=== PATIENT | female | born 1980 | race Caucasian/White ===

== ENCOUNTER 2019-06-29 17:42 | Emergency (ER) | payer OTHER, SELFPAY ==
--- NOTE | ~2019-06-29 | XR_ITS ---
EXAMINATION: XR ankle LT min 3V DATE: 06/29/2019 18:09 INDICATION: Left ankle pain TECHNIQUE: Anteroposterior, lateral, mortise, and additional oblique view of the ankle were obtained. COMPARISON: None. FINDINGS: Bone alignment is normal. There is no fracture. The soft tissues are unremarkable. A planta r calcaneal enthesophyte is noted. IMPRESSION: 1. No acute osseous abnormality. Reviewed, dictated and finalized at location A.
[2019-06-29 17:58] VITALS: BP 146/88; PULSE 80; RESP 16; TEMP 36.8; O2SAT 98
--- NOTE | 2019-06-29 18:22 | ED.LOWEXIN ---
HPI - Extremity Injury (Lower) General Chief Complaint: Extremity Injury, Lower Stated Complaint: LEFT FOOT INJURY Time Seen by Provider: 06/29/19 18:08 Source: RN notes reviewed History of Present Illness HPI Narrative: Patient presents emergency department from home for left ankle pain. Patient states that just prior to arrival she was walking on the stairs when at the last stair she rolled her left ankle and felt a pop. She states she is had pain over the left lateral and anterior ankle since that time with mild swelling she denies any other trauma or injury denies any numbness or tingling or any other symptoms at this time Related Data Home Medications Medication Instructions Recorded Confirmed ergocalciferol (vitamin D2) 50,000 unit PO WEEKLY 01/11/19 01/11/19 tramadol 50 mg PO Q12H 01/11/19 01/11/19 duloxetine mg PO 06/29/19 06/29/19 Allergies Allergy/AdvReac Type Severity Reaction Status Date / Time No Known Allergies Allergy Verified 06/29/19 17:58 Review of Systems Review of Systems: Narrative: Gen.: Denies fevers or chills Musculoskeletal: See HPI Neuro: Denies numbness, tingling, weakness Skin: Denies rash Endo: Denies DM PMFSH Past Medical History Medical History Abnormal uterine bleeding Anemia Anxiety Asthma Bursitis of left knee Gallbladder disease Hiatal hernia History of cardiac monitoring IBS (irritable bowel syndrome) Mitral valve prolapse Sleep apnea Supraventricular tachycardia Social History Social History Smoking packs per day: 1 Smoking cigarettes per day: 20.0 Years smoked: 20 Smoking pack-years: 20.00 Smoking status: Former smoker Tobacco type: cigarettes Second hand tobacco smoke exposure: No Alcohol intake: current Gender identity (if verbalized by the patient): Female Exam Narrative: Exam Narrative: APPEARANCE: No acute distress, nontoxic, resting in bed Eyes: EOMI HEENT: Normocephalic, atraumatic, RESPIRATORY: No respiratory distress MUSCULOSKELETAl: Tender to palpation over the left anterior and lateral ankle with mild swelling present no ecchymosis, no pain wound over medial malleolus, no tenderness the proximal fibula or the base of the fifth metatarsal, dorsalis pedis pulse 2+, neurovascular intact NEURO: Awake and alert. Following commands, speech normal, no focal deficits SKIN:: Warm, dry. Normal Color no rash or lesions Course Vital Signs Vital signs: Vital Signs Temperature 98.2 F 06/29/19 17:58 Pulse Rate 80 06/29/19 17:58 Respiratory Rate 16 06/29/19 17:58 Blood Pressure 146/88 H 06/29/19 17:58 Pulse Oximetry 98 06/29/19 17:58 Temperature 98.2 F 06/29/19 17:58 Pulse Rate 80 06/29/19 17:58 Respiratory Rate 16 06/29/19 17:58 Blood Pressure 146/88 H 06/29/19 17:58 Pulse Oximetry 98 06/29/19 17:58 MDM - Extremity Injury (Lower) Imaging Data Radiologist's impression: ITS Impressions Ankle X-Ray 06/29/19 18:19 IMPRESSION: 1. No acute osseous abnormality. Discharge Plan Discharge Clinical Impression: Left ankle sprain Patient Disposition: Home, Self-Care Condition: Stable Instructions: Antibiotic Form, Ankle Sprain (ED) Additional Instructions: Return for increasing pain numbness or tingling in the extremities or any other symptoms of concern Prescriptions: New ibuprofen [IBU] 600 mg tablet 600 mg PO Q6H PRN (Reason: pain) Qty: 20 RF: 0 No Action tramadol 50 mg tablet 50 mg PO Q12H RF: 0 ergocalciferol (vitamin D2) 50,000 unit capsule 50,000 unit PO WEEKLY RF: 0 duloxetine 30 mg capsule,delayed release(DR/EC) PO RF: 0 Follow-up/Referrals: José,MD Phil [Primary Care Provider] - 2 Days Time of Disposition: 18:25
== END 2019-06-29 19:12 | disposition home or self-care (01) ==
PROVIDERS: Emergency Provider Emergency Medicine; PCP Internal Medicine
DX: S93.402A Sprain of unspecified ligament of left ankle, initial encounter (principal); X50.9XXA Other and unspecified overexertion or strenuous movements or postures, initial encounter; Z87.891 Personal history of nicotine dependence; J45.909 Unspecified asthma, uncomplicated; K58.9 Irritable bowel syndrome, unspecified; I34.1 Nonrheumatic mitral (valve) prolapse; G47.30 Sleep apnea, unspecified
CPT/HCPCS: 73610; 99283

== ENCOUNTER 2019-09-21 18:41 | Emergency (ER) | payer OTHER, SELFPAY ==
--- NOTE | ~2019-09-21 | CT_ITS ---
EXAMINATION: CT abdomen pelvis wo con EXAM DATE: 09/21/2019 21:04 INDICATION: Left flank pain and hematuria. Symptoms one month. TECHNIQUE: Spiral CT of the abdomen and pelvis was performed without contrast. Axial, coronal and sag ittal images were reviewed. The dose-length product (DLP) for this examination was 1234.08 mGy-cm. The exposure was tailored according to patient size (auto mA exposure control), and iterative reconst ruction (ASIR) was used as additional dose reduction technique. Comparison is made to prior examinati on from 01/01/2018. FINDINGS: There is no nephrolithiasis. Again there is mild dilation of the left renal inferior miliar y disease without suspicion of obstruction, no ureteral stones. The uterus is not identified and has likely been surgically resected. The bladder is unremarkable. The liver, spleen, adrenal glands an d pancreas are unremarkable. There are cholecystectomy clips. There is no retroperitoneal or pelvic lymphadenopathy. The appendix is normal. The stomach and small bowel are unremarkable. There is mild to moderate scat tered colonic diverticulosis. There is no adjacent inflammatory change to suggest diverticulitis. N o free intraperitoneal gas. The heart is normal in size. There are no pericardial or pleural effus ions. The lung bases are unremarkable. There is grade 2 anterolisthesis L5 on S1 without spondyloly sis. IMPRESSION: 1. Mild to moderate scattered colonic diverticulosis. 2. Mildly chronically dilated left kidney inferior moiety. 3. No acute intra-abdominal findings. Reviewed, dictated and finalized at location A.
[2019-09-21 19:03] VITALS: BP 120/74; PULSE 67; RESP 16; TEMP 36.8; O2SAT 99
[2019-09-21 19:18] LABS: Basophils Percent Auto 0.2 % (0.2-1.2); Eosinophils Absolute Auto 0.1 K/mm3 (0-0.3); Eosinophils Percent Auto 0.8 % (0-4.4); Hematocrit 38.7 % (37.0-47.0); Hemoglobin 13.2 g/dL (12.0-15.0); Immature Granulocyte Absolute 0.03 K/mm3 (0.00-0.031); Immature Granulocyte Percent A 0.3 % (0-0.5); Lymphocytes Absolute Auto 3.23 K/mm3 (0.9-3.2); Lymphocytes Percent Auto 35.6 % (18.3-44.2); Mean Corpuscular HGB Conc 34.1 g/dl (32-36); Mean Corpuscular Hemoglobin 30.1 pg (26-34); Mean Corpuscular Volume 88.4 fl (80-100); Mean Platelet Volume 9.2 fl (7.4-10.4); Monocytes Absolute Auto 0.5 K/mm3 (0.1-0.6); Monocytes Percent Auto 5.8 % (2.6-8.5); Neutrophils Absolute Auto 5.2 K/mm3 (1.3-6.7); Neutrophils Percent Auto 57.3 % (45.5-73.1); Platelet Count Result 273 k/mm3 (150-375); Red Blood Count 4.38 M/mm3 (4.2-5.4); Red Cell Distribution Width 12.6 % (11.5-14.5); White Blood Count 9.1 K/mm3 (4.5-10.0)
[2019-09-21 19:31] LABS: Anion Gap 8 mmol/L (8-16); Blood Urea Nitrogen 12 mg/dL (7-17); Calcium 8.8 mg/dL (8.4-10.2); Carbon Dioxide 25 mmol/L (22-30); Chloride 103 mmol/L (98-107); Estimated CRCL calculation 114 ml/min; Estimated Glomerular Filt Rate > 60; Glucose 101 mg/dL (65-105); Potassium 3.8 mmol/L (3.4-5.0); Sodium 136 mmol/L (137-145)
[2019-09-21 19:38] LABS: Add Urine Microscopic? YES; Appearance Urine Clear (Clear); Bacteria Urine Trace /hpf; Bilirubin Urine Negative (Negative); Blood Urine Negative (Negative); Color Urine Yellow (Yellow); Glucose Urine UA Negative (Negative); Ketones Urine Trace mg/dL (Negative); Leukocyte Esterase Ur Trace LEU/UL (Negative); Mucus Urine Few /lpf; Nitrate Urine Negative (Negative); Protein Urine Negative (Negative); RBC Urine 0-2 /hpf (0-2); Squamous Epithelial Cell Urine Few /hpf (Few); WBC Urine 0-3 /hpf
[2019-09-21 19:43] LABS: Specific Grav Ur 1.033 (1.001-1.035)
--- NOTE | 2019-09-21 20:40 | ED.BACK ---
HPI - Back Pain/Injury General Chief Complaint: Back Pain/Injury Stated Complaint: left kidney pain Time Seen by Provider: 09/21/19 20:40 Source: patient Mode of arrival: ambulatory Limitations: no limitations History of Present Illness HPI Narrative: Patient is a 39-year-old female who presents for evaluation of left-sided back pain. Pain is been intermittent over the past 4 weeks, at times it is severe, aching in nature. Patient does associate some point tenderness that can be reproducible, other times the pain is not reproducible. Patient has reported some intermittent hematuria as well. No dysuria. Patient has been taking ibuprofen with good improvement in her symptoms. Patient has no known history of nephrolithiasis. No fever or chills. Patient reports nausea and vomiting today. Related Data Home Medications Medication Instructions Recorded Confirmed ergocalciferol (vitamin D2) 50,000 unit PO WEEKLY 01/11/19 01/11/19 tramadol 50 mg PO Q12H 01/11/19 01/11/19 duloxetine mg PO 06/29/19 06/29/19 Allergies Allergy/AdvReac Type Severity Reaction Status Date / Time No Known Allergies Allergy Verified 06/29/19 17:58 Review of Systems Review of Systems: Narrative: CONSTITUTIONAL: Denies fever, chills, or sweats. EYES: Denies visual changes, redness, or discharge. ENT: Denies rhinorrhea, congestion, sore throat, or otalgia. CARDIOVASCULAR: Denies chest pain, palpitations, or edema. RESPIRATORY: Denies cough or dyspnea. GASTROINTESTINAL: Denies abdominal pain, reports nausea and vomiting today GENITOURINARY: Denies dysuria, denies frequency or urgency, reports intermittent hematuria SKIN: Denies rash or itching. MUSCULOSKELETAL: Reports left flank pain, denies other joint pain or myalgias NEUROLOGIC: Denies headache, numbness, or weakness. [facility] Past Medical History Medical History Abnormal uterine bleeding Anemia Anxiety Asthma Bursitis of left knee Gallbladder disease Hiatal hernia History of cardiac monitoring IBS (irritable bowel syndrome) Mitral valve prolapse Sleep apnea Supraventricular tachycardia Surgical History Surgical History H/O cardiac radiofrequency ablation H/O section H/O tubal ligation H/O: hysterectomy History of cholecystectomy Hx of tonsillectomy Family History Family History Mother Family history of obesity Depression Family history of bipolar disorder Hypertension Family history of diabetes mellitus in first degree relative Family history of attention deficit hyperactivity disorder (ADHD) Family history of malignant neoplasm of breast in first degree relative Father Family history of liver disease Family history of kidney disease Family history of malignant neoplasm of kidney Other Diabetes mellitus Family history of Alzheimer's disease Family history of malignant neoplasm of thyroid Social History Social History Smoking packs per day: 1 Smoking cigarettes per day: 20.0 Years smoked: 20 Smoking pack-years: 20.00 Smoking status: Former smoker Tobacco type: cigarettes Second hand tobacco smoke exposure: No Alcohol intake: current Gender identity (if verbalized by the patient): Female Exam Narrative: Exam Narrative: GENERAL: Awake, alert, conversant HEAD: Normocephalic, atraumatic. EYES: PERRLA and EOMI. ENT: Nares clear, no rhinorrhea or epistaxis. Mucous membranes moist. NECK: Supple. CHEST: No respiratory distress, breathing even and non labored HEART: Regular rate, sinus rhythm ABDOMEN:Non distended, non tender, mild reproducible left flank tenderness EXTREMITIES: Normal range of motion. No edema. SKIN: Warm, dry, no rash. No overlying rash over the flank or thorax. NEURO:No focal deficits. Alert and ming
[2019-09-21 22:09] VITALS: BP 134/74; PULSE 63; RESP 20; TEMP 36.6; O2SAT 100
== END 2019-09-21 22:10 | disposition home or self-care (01) ==
PROVIDERS: Emergency Medicine; Emergency Provider Emergency Medicine; PCP Internal Medicine
DX: M54.5 Low back pain (principal); Z86.2 Personal history of diseases of the blood and blood-forming organs and certain disorders involving the immune mechanism; J45.909 Unspecified asthma, uncomplicated; K58.9 Irritable bowel syndrome, unspecified; I34.1 Nonrheumatic mitral (valve) prolapse; G47.30 Sleep apnea, unspecified; K57.90 Diverticulosis of intestine, part unspecified, without perforation or abscess without bleeding; N28.89 Other specified disorders of kidney and ureter
CPT/HCPCS: 36415; 74176; 80048; 81001; 81025; 85025; 99284

== ENCOUNTER 2019-11-20 05:45 | Emergency (ER) | payer OTHER, SELFPAY ==
--- NOTE | ~2019-11-20 | XR_ITS ---
EXAMINATION: XR chest 1V portable DATE: 11/20/2019 06:35 INDICATION: Cough and fever and shortness of breath. TECHNIQUE: A single frontal view of the chest was obtained. COMPARISON: Chest 2 views 01/10/2019, CT abdomen and pelvis 09/21/2019 FINDINGS: The chest demonstrates clear lungs without pneumonia, pleural effusion, or pneumothorax. Th e heart size is normal. IMPRESSION: 1. No acute cardiopulmonary disease. Reviewed, dictated and finalized at location A.
[2019-11-20 05:56] VITALS: BP 119/72; PULSE 69; RESP 16; TEMP 36.8; O2SAT 96
--- NOTE | 2019-11-20 06:49 | ECG_ITS ---
Measurements Intervals [place] Rate: 62 P: 43 GA: 139 QRS: 15 QRSD: 101 T: 29 QT: 436 QTc: 444 Interpretive Statements SINUS RHYTHM WITH SINUS ARRHYTHMIA NORMAL ECG Electronically Signed On 11-20-2019 7:23:08 CDT by Kev Altman D.O.
--- NOTE | 2019-11-20 06:52 | ED.FEVER ---
HPI - Fever General Chief Complaint: Fever Stated Complaint: fever, sob, chest is on fire, bodyaches Time Seen by Provider: 11/20/19 06:49 Source: patient Mode of arrival: ambulatory Limitations: no limitations History of Present Illness HPI Narrative: This patient is a 39 year old female with history of asthma and anxiety who presents for evaluation of fever. She states she has had runny nose and cough since Tuesday. Today she states she had a fever around 5 am. She took ibuprofen for her fever. She reports chest has midsternal burning pain only when she coughs. She reports she felt sob when she got to work but she denies sob now. 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 She denies any other symptoms that could account for a fever. MD elicited complaint: fever Related Data Home Medications Medication Instructions Recorded Confirmed ergocalciferol (vitamin D2) 50,000 unit PO WEEKLY 01/11/19 01/11/19 tramadol 50 mg PO Q12H 01/11/19 01/11/19 duloxetine mg PO 06/29/19 06/29/19 Allergies Allergy/AdvReac Type Severity Reaction Status Date / Time No Known Allergies Allergy Verified 06/29/19 17:58 Review of Systems Review of Systems: All systems reviewed & are unremarkable except as noted in HPI and below Constitutional: Constitutional: Denies fever(s) ENT: Denies sore throat Comments: runny nosed Cardiovascular: Cardiovascular: Reports chest pain (only with cough) Gastrointestinal: Gastrointestinal: Denies abdominal pain, Denies diarrhea, Denies nausea and Denies vomiting [facility] Past Medical History Medical History (Updated 11/20/19 @ 07:13 by Naya Nicole MD) Abnormal uterine bleeding Anemia Anxiety Asthma Bursitis of left knee Gallbladder disease Hiatal hernia History of cardiac monitoring IBS (irritable bowel syndrome) Mitral valve prolapse Sleep apnea Supraventricular tachycardia Surgical History Surgical History H/O cardiac radiofrequency ablation H/O section H/O tubal ligation H/O: hysterectomy History of cholecystectomy Hx of tonsillectomy Family History Family History Mother Family history of obesity Depression Family history of bipolar disorder Hypertension Family history of diabetes mellitus in first degree relative Family history of attention deficit hyperactivity disorder (ADHD) Family history of malignant neoplasm of breast in first degree relative Father Family history of liver disease Family history of kidney disease Family history of malignant neoplasm of kidney Other Diabetes mellitus Family history of Alzheimer's disease Family history of malignant neoplasm of thyroid Social History Social History Smoking packs per day: 1 Smoking cigarettes per day: 20.0 Years smoked: 20 Smoking pack-years: 20.00 Smoking status: Former smoker Tobacco type: cigarettes Second hand tobacco smoke exposure: No Alcohol intake: current Gender identity (if verbalized by the patient): Female Exam Const: General: no acute distress and alert Orientation/consciousness: patient oriented x3 HENMT: Head: normocephalic and atraumatic Ears: TM's normal bilaterally General nose exam: Normal nasal mucous membranes and turbinates present Mouth: Yes lip normal, Yes oropharynx normal and Yes moist mucous membranes Throat: posterior oropharynx normal, tonsils normal and uvula midline Eyes: Pupils: Equal, round and reactive pupils present EOM: EOMs intact bilaterally Neck: Neck: normal visual inspection Chest: Chest palpation & inspection: normal inspection of the chest Resp: Effort & Inspection: normal respiratory effort and no retractions Auscultation: clear to auscultation bilaterally Cardio: Rate: regular rate Rhythm: regular rhythm Heart sounds:
[2019-11-20 07:44] VITALS: BP 129/78; PULSE 82; RESP 18; O2SAT 100
[2019-11-20 19:01] LABS: SARS-CoV-2 RNA PCR Negative
== END 2019-11-20 07:44 | disposition home or self-care (01) ==
PROVIDERS: Emergency Provider General Practice; PCP Internal Medicine
DX: R50.9 Fever, unspecified (principal); Z20.828 Contact with and (suspected) exposure to other viral communicable diseases
CPT/HCPCS: 71045; 87635; 93005; 99283; C9803; U0003

== ENCOUNTER 2020-05-07 05:47 | Emergency (ER) | payer OTHER, SELFPAY ==
[2020-05-07] VITALS (8 sets, daily range): BP systolic 102–129; BP diastolic 62–104; PULSE 78–85; RESP 13–20; TEMP 36.9; O2SAT 97–100
--- NOTE | ~2020-05-07 | XR_ITS ---
EXAMINATION: XR chest 1V portable DATE: 05/07/2020 06:48 INDICATION: Cough, shortness of breath and fever. COVID positive. TECHNIQUE: frontal view of the chest was obtained. COMPARISON: Chest radiograph dated 11/20/2019 FINDINGS: Linear discoid atelectasis at the left costophrenic angle. Remainder of the lungs are clear with no o ther airspace opacities, pulmonary edema, pleural effusion or pneumothorax. The cardiomediastinal nathen houette is normal. Visualized bones and soft tissues are unremarkable. IMPRESSION: 1. Minimal left basilar discoid atelectasis. Reviewed, dictated and finalized at location A.
--- NOTE | 2020-05-07 06:19 | ECG_ITS ---
Measurements Intervals [place] Rate: 80 P: 44 [place]: 130 QRS: 26 QRSD: 104 T: 54 QT: 371 QTc: 428 Interpretive Statements SINUS RHYTHM INCOMPLETE RIGHT BUNDLE BRANCH BLOCK NONSPECIFIC T-WAVE ABNORMALITY- LATERAL LEADS BASELINE ARTIFACT- I, III, AVL BORDERLINE ECG Electronically Signed On 05-07-2020 7:04:18 CDT by Kev Altman D.O.
--- NOTE | 2020-05-07 06:20 | ED.FEVER ---
HPI - Fever General Chief Complaint: Fever <Naya Nicole MD - Last Filed: 05/07/20 07:02> Stated Complaint: Fever-Covid pos 04/30/20 <Naya Nicole MD - Last Filed: 05/07/20 07:02> Time Seen by Provider: 05/07/20 05:52 <Naya Nicole MD - Last Filed: 05/07/20 07:02> Source: patient <Naya Nicole MD - Last Filed: 05/07/20 07:02> Mode of arrival: ambulatory <Naya Nicole MD - Last Filed: 05/07/20 07:02> Limitations: no limitations <Naya Nicole MD - Last Filed: 05/07/20 07:02> History of Present Illness HPI Narrative: This is a 39 year old female that was diagnosed with COVID 19 on 04/30/20 who presents for evaluation of fever. She states that she was tested for COVID 04/30/20 because her was positive. She developed symptoms on 05/01/20. She reports cough, palpitations, poor appetite and intermittent fever initially. She developed nausea and vomiting 2 days ago, so her primary care physician prescribed azithromycin, zofran and prednisone. She states she was orthostatic yesterday so she was able to drink a lot of gatorade and she states she was no longer orthostatic. This morning she woke up with with chills, shakes and a fever or 102F. She took ibuprofen prior to arrival. She came to the ER because he primary care physician recommended that she get evaluated if she developed a fever. She reports intermittent nonradiating left chest pressure but she denies having pain currently. She has shortness of breath with activity. She also has palpitation <Naya Nicole MD - Last Filed: 05/07/20 07:02> Related Data Home Medications: Home Medications Medication Instructions Recorded Confirmed ergocalciferol (vitamin D2) 50,000 unit PO WEEKLY 01/11/19 01/11/19 tramadol 50 mg PO Q12H 01/11/19 01/11/19 duloxetine mg PO 06/29/19 06/29/19 <Naya Nicole MD - Last Filed: 05/07/20 07:02> Allergies/Adverse Reactions: Allergies Allergy/AdvReac Type Severity Reaction Status Date / Time No Known Allergies Allergy Verified 05/07/20 06:05 <Naya Nicole MD - Last Filed: 05/07/20 07:02> Review of Systems Review of Systems: All systems reviewed & are unremarkable except as noted in HPI and below <Naya Nicole MD - Last Filed: 05/07/20 07:02> Constitutional: Constitutional: Reports chills, Reports fatigue and Reports fever(s) <Naya Nicole MD - Last Filed: 05/07/20 07:02> ENT: Denies sore throat <Naya Nicole MD - Last Filed: 05/07/20 07:02> Cardiovascular: Cardiovascular: Reports chest pain, Denies rapid heart rate and Denies radiating jaw, neck or arm pain <Naya Nicole MD - Last Filed: 05/07/20 07:02> Respiratory: Respiratory: Reports cough and Reports dyspnea <Naya Nicole MD - Last Filed: 05/07/20 07:02> Gastrointestinal: Gastrointestinal: Denies abdominal pain, Denies diarrhea, Reports nausea and Reports vomiting <Nyaa Nicole MD - Last Filed: 05/07/20 07:02> Genitourinary: Genitourinary: Denies hematuria and Denies dysuria <Naya Nicole MD - Last Filed: 05/07/20 07:02> Musculoskeletal: Musculoskeletal: Denies back pain <Naya Nicole MD - Last Filed: 05/07/20 07:02> [facility] Past Medical History Medical History: Medical History (Updated 05/07/20 @ 07:26 by Elva Ramirez MD) Abnormal uterine bleeding Anemia Anxiety Asthma Bursitis of left knee Gallbladder disease Hiatal hernia History of cardiac monitoring IBS (irritable bowel syndrome) Mitral valve prolapse Sleep apnea Supraventricular tachycardia <Naya Nicole MD - Last Filed: 05/07/20 07:02> Surgical History Surgical History: Surgical History H/O cardiac radiofrequency ablation H/O section H/O tubal ligation H/O: hysterectomy History of cholecystectomy Hx of tonsillectomy <Naya Nicole MD - Last Filed: 05/07/20 07:02>
[2020-05-07] MEDS: ONDANSETRON INJ 4 MG/2 ML VIAL IV PUSH (06:36)
[2020-05-07] MEDS: SODIUM CHLORIDE 0.9% IV 1,000 ML 999 ML IV CONT (06:36)
[2020-05-07 06:37] LABS: Basophils Percent Auto 0.3 % (0.2-1.2); Hematocrit 40.9 % (37.0-47.0); Hemoglobin 13.9 g/dL (12.0-15.0); Immature Granulocyte Absolute 0.01 K/mm3 (0.00-0.031); Immature Granulocyte Percent A 0.3 % (0-0.5); Lymphocytes Percent Auto 29.3 % (18.3-44.2); Mean Corpuscular Hemoglobin 29.7 pg (26-34); Mean Corpuscular Volume 87.4 fl (80-100); Mean Platelet Volume 9.4 fl (7.4-10.4); Monocytes Absolute Auto 0.2 K/mm3 (0.1-0.6); Monocytes Percent Auto 6.1 % (2.6-8.5); Neutrophils Absolute Auto 2.4 K/mm3 (1.3-6.7); Platelet Count Result 141 k/mm3 (150-375); Red Blood Count 4.68 M/mm3 (4.2-5.4); Red Cell Distribution Width 12.5 % (11.5-14.5); White Blood Count 3.8 K/mm3 (4.5-10.0)
[2020-05-07 06:48] LABS: INR 0.8; Prothrombin Time 12.1 Seconds (11.1-14.7)
[2020-05-07 06:50] LABS: D Dimer 0.76 ug/mL (<0.48)
[2020-05-07 06:54] LABS: Alanine Aminotransferase 128 U/L (4-35); Alkaline Phosphatase 112 U/L (38-126); Anion Gap 5 mmol/L (8-16); Aspartate Amino Transferase 119 U/L (14-36); Bilirubin,Total 0.5 mg/dL (0.2-1.3); Blood Urea Nitrogen 9 mg/dL (7-17); CRP < 0.5 mg/dL (<1.0); Calcium 8.3 mg/dL (8.4-10.2); Carbon Dioxide 28 mmol/L (22-30); Chloride 105 mmol/L (98-107); Estimated CRCL calculation 107 ml/min; Estimated Glomerular Filt Rate > 60; Glucose 100 mg/dL (65-105); Magnesium 1.5 mg/dL (1.6-2.3); Potassium 4.1 mmol/L (3.4-5.0); Sodium 138 mmol/L (137-145)
[2020-05-07 07:01] LABS: Troponin I < 0.012 ng/mL (0.000-0.034)
[2020-05-07 07:40] LABS: Partial Thromboplastin Time 24.7 SECONDS (22.3-36.8)
== END 2020-05-07 07:43 | disposition home or self-care (01) ==
PROVIDERS: General Practice; Emergency Provider Emergency Medicine; PCP Internal Medicine
DX: U07.1 COVID-19 (principal); D64.9 Anemia, unspecified; J45.909 Unspecified asthma, uncomplicated; G47.30 Sleep apnea, unspecified
CPT/HCPCS: 36415; 71045; 80053; 81025; 83735; 84484; 85025; 85380; 85610; 85730; 86140; 93005; 96361; 96374; 99284; J2405; J7030

== ENCOUNTER → 2020-08-08 08:18 | Outpatient (CLI) | payer OTHER, SELFPAY ==
--- NOTE | ~2020-08-08 | CT_ITS ---
EXAMINATION: CT abdomen pelvis wo con DATE: 08/08/2020 08:38 INDICATION: Incisional hernia without obstruction or gangrene TECHNIQUE: Computed tomography (CT) of the abdomen and pelvis was performed without intravenous contr ast. The dose-length product (DLP) was 1023.97 mGy-cm. Automated exposure control and iterative recon struction technique were employed. COMPARISON: 09/21/2019 FINDINGS: The lung bases are clear. The heart size is normal. The gallbladder is surgically absent. T here is mild enlargement of the common bile duct and central intrahepatic ducts which is likely due t o post cholecystectomy state. The liver, spleen, pancreas, and adrenal glands are normal. The right k idney is unremarkable. There is unchanged chronic dilatation of a lower pole calyx of the left kidney . No pathologically enlarged abdominal or pelvic lymph nodes are identified. There is no free intrape ritoneal gas or evidence of bowel obstruction. Colonic diverticulosis is present without evidence of diverticulitis. There are bilateral L5 pars defects with grade 1 anterolisthesis of L5 on S1 there is a fat-containing midline epigastric hernia with a 2.1 cm neck. A small fat-containing midline ventra l hernia was present for centimeters above the umbilicus and has a 1 cm neck there is a fat-containin g umbilical hernia. IMPRESSION: 1. Multiple fat-containing midline ventral hernias, the largest of which is in the epigastric hernia. Reviewed, dictated and finalized at location D.
== END ==
PROVIDERS: Visit Provider Surgery
DX: K43.2 Incisional hernia without obstruction or gangrene (principal)
CPT/HCPCS: 74176

== ENCOUNTER 2020-08-15 07:33 | Emergency (ER) | payer OTHER, SELFPAY ==
--- NOTE | ~2020-08-15 | XR_ITS ---
EXAMINATION: XR shoulder RT min 2V EXAM DATE: 08/15/2020 08:09 INDICATION: Anterior joint line pain, pushing injury from work . Initial encounter. TECHNIQUE: The following right shoulder projections obtained: frontal projection with internal rotati on, frontal projection with external rotation, Grashey, and scapular Y view (4+ views). There is no prior study for comparison. FINDINGS: No evidence of right shoulder rotator cuff calcific tendinosis. There is no glenohumeral joint, mild acromioclavicular joint primary osteoarthritis. There are no acute fractures or dislocati ons identified. There is no subcutaneous gas. The soft tissue is unremarkable. There are no radio paque foreign bodies. IMPRESSION: 1. XR shoulder RT min 2V exam without acute osseous findings. Reviewed, dictated and finalized at location D.
[2020-08-15 07:48] VITALS: BP 121/93; PULSE 91; RESP 16; TEMP 36.8; O2SAT 98
--- NOTE | 2020-08-15 10:22 | ED.UPPEXIN ---
HPI - Extremity Injury (Upper) General Chief Complaint: Extremity Injury, Upper Stated Complaint: R shoulder injury Time Seen by Provider: 08/15/20 07:51 History of Present Illness HPI narrative: Patient is a 40-year-old female who presents ER with right shoulder pain. She was helping move a patient last night when she felt a cracking pain in her right shoulder. She has pain with abduction. No numbness or tingling. She has not tried any pain medication. Most the pain is over the anterior aspect of her shoulder. Related Data Home Medications Medication Instructions Recorded Confirmed tramadol 50 mg PO Q12H 01/11/19 07/29/20 dextroamphetamine-amphetamine 25 mg PO DAILY 08/15/20 08/15/20 [Adderall XR] Allergies Allergy/AdvReac Type Severity Reaction Status Date / Time No Known Allergies Allergy Verified 08/15/20 07:56 Review of Systems Review of Systems: All systems reviewed & are unremarkable except as noted in HPI and below Musculoskeletal: Musculoskeletal: Denies back pain, Reports arthralgias, Denies joint swelling and Denies muscle cramps Neurologic: Denies focal weakness and Denies numbness [facility] Past Medical History Medical History (Updated 08/15/20 @ 10:26 by Grzegorz Henderson MD) Abnormal uterine bleeding Anemia Anxiety Asthma Bursitis of left knee Gallbladder disease Hiatal hernia History of blood transfusion History of cardiac monitoring IBS (irritable bowel syndrome) Mitral valve prolapse Sleep apnea Supraventricular tachycardia Surgical History Surgical History H/O cardiac radiofrequency ablation H/O section H/O tubal ligation H/O: hysterectomy History of cholecystectomy Hx of tonsillectomy Family History Family History Mother Family history of obesity Depression Family history of bipolar disorder Hypertension Family history of diabetes mellitus in first degree relative Family history of attention deficit hyperactivity disorder (ADHD) Family history of malignant neoplasm of breast in first degree relative Family history of kidney disease Father Family history of liver disease Family history of kidney disease Family history of malignant neoplasm of kidney Other Diabetes mellitus Family history of Alzheimer's disease Family history of malignant neoplasm of thyroid Social History Social History Smoking packs per day: 1 Smoking cigarettes per day: 20.0 Years smoked: 20 Smoking pack-years: 20.00 Smoking status: Current every day smoker Tobacco type: cigarettes Second hand tobacco smoke exposure: No Alcohol intake: current Substance use: unknown Additional occupation/education comments: INVENTORY AUDITOR at [employer] Gender identity (if verbalized by the patient): Female Exam Narrative: Exam Narrative: GENERAL: Well-appearing, well-nourished, and in no acute distress. HEAD: Normocephalic, atraumatic. CHEST: Clear to auscultation. No respiratory distress. HEART: Regular rate and rhythm. Normal peripheral pulses. EXTREMITIES: Focused exam of the right upper extremity reveals anterior joint line tenderness inferior to the AC process. No tenderness over the AC process. Normal internal and external rotation. Patient has increased pain and crepitance of the area with abduction of 20 degrees. Neurovascular intact distal to this. SKIN: Warm, dry, no rash. NEURO: Alert and oriented x3. PSYCH: Normal mood and affect. Course Course Emergency Course: Recommend rest and NSAIDs. Recommend follow-up with PCP and will also give Ortho referral. Shoulder impingement versus labral injury. Patient verbalized understanding. Vital Signs Vital signs: Vital Signs Temperature 98.2 F 08/15/20 07:48 Pulse Rate 91 08/15/20 07:48 Respiratory Rate 16 08/15/20 07:48 B
== END 2020-08-15 10:50 | disposition home or self-care (01) ==
PROVIDERS: Emergency Provider Emergency Medicine; PCP Internal Medicine
DX: S49.91XA Unspecified injury of right shoulder and upper arm, initial encounter (principal); Z86.2 Personal history of diseases of the blood and blood-forming organs and certain disorders involving the immune mechanism; F41.9 Anxiety disorder, unspecified; J45.909 Unspecified asthma, uncomplicated; K58.9 Irritable bowel syndrome, unspecified; I34.1 Nonrheumatic mitral (valve) prolapse; G47.30 Sleep apnea, unspecified; F17.210 Nicotine dependence, cigarettes, uncomplicated; X50.0XXA Overexertion from strenuous movement or load, initial encounter; Y93.F2 Activity, caregiving, lifting
CPT/HCPCS: 73030; 99283

== ENCOUNTER 2020-08-27 08:22 | Outpatient (CLI) | payer OTHER, SELFPAY ==
--- NOTE | ~2020-08-27 | MR_ITS ---
EXAMINATION: MR shoulder RT wo con DATE: 08/27/2020 10:07 INDICATION: Right shoulder and upper arm injury TECHNIQUE: Magnetic resonance imaging (MRI) of the right shoulder was performed without intravenous c ontrast. Sequences included axial PD-weighted FS FSE, coronal oblique PD-weighted FS FSE, coronal obl ique T2-weighted FS FSE, sagittal PD-weighted FS FSE, and sagittal T1-weighted SE. COMPARISON: None. FINDINGS: Coracoacromial arch: The acromion undersurface is curved in morphology (type II). Mild thickening of the acromial side of the coracoacromial ligament which exerts mass effect upon the underlying bursal side of the posterior supraspinatus tendon. Mild acromioclavicular osteoarthritis. Rotator cuff: Mild to moderate tendinopathy with shallow bursal sided fraying at the distal supraspinatus and infra spinatus tendons. No measurable tear defect appreciated. The subscapularis and teres minor tendons ar e normal. Normal rotator cuff muscle bulk and signal. Biceps tendon, glenoid labrum and glenohumeral cartilage: Long head of the biceps tendon is normal. Glenoid labrum is normal. Glenohumeral cartilage is normal. Fluid: Physiologic amount of fluid in the glenohumeral joint and biceps tendon sheath. No loose osteochondra l bodies. Small amount of fluid in the subacromial/subdeltoid bursa consistent with mild to moderate bursitis. Bones: Normal marrow signal with no edema, fracture or abnormal marrow replacing process. IMPRESSION: 1. Mild to moderate supraspinatus and infraspinatus tendinopathy with shallow bursal sided fraying bu t no measurable tear defect. 2. Mild to moderate subacromial/subdeltoid bursitis. 3. Mild acromioclavicular osteoarthritis. Reviewed, dictated and finalized at location A. IMPRESSION: 1. Mild to moderate supraspinatus and infraspinatus tendinopathy with shallow b ursal sided fraying but no measurable tear defect. 2. Mild to moderate subacromial/subdeltoid bursitis. 3. Mild acromioclavicular osteoarthritis.
== END 2020-08-27 08:23 | disposition home or self-care (01) ==
PROVIDERS: PCP Internal Medicine; Visit Provider Orthopaedic Surgery
DX: S49.91XA Unspecified injury of right shoulder and upper arm, initial encounter (principal); X58.XXXA Exposure to other specified factors, initial encounter; M19.011 Primary osteoarthritis, right shoulder; M75.51 Bursitis of right shoulder
CPT/HCPCS: 73221

== ENCOUNTER 2020-10-31 11:00 | Outpatient (RCR) | payer OTHER, SELFPAY ==
--- NOTE | 2020-10-01 12:47 | PTOPEVAL ---
INITIAL PHYSICAL THERAPY EVALUATION and PLAN OF CARE Thank you for referring Renea Hanna to [facility].? Renea is scheduled to be seen for physical therapy?2-3x/week for 4-6 weeks. Please review, sign, date and return this plan of care MOISE. I agree with and certify that the following plan of care is medically necessary. Referring Physician Date Admitting Provider: Attending Provider: Cristobal Nielsen MD Referring Provider: *PT Outpatient Evaluation Start: 10/01/20 11:18 Freq: Status: Active Protocol: Document 10/01/20 11:20 VAISHALI (Rec: 10/01/20 12:46 VAISHALI [id number]) Therapy Assessment Status Assessment Status Assessment Status Evaluation Outpatient Past Medical History Past Medical History Source of Past Medical History Recalled from Previous Visit, Confirmed with Patient/Family Neurological History Hx Neurological Disorders No Significant History Cardiovascular History Hx Irregular Heartbeat Yes: tachycardia at times Hx Mitral Valve Prolapse Yes Hx Other Cardiac Disorders Yes: ablasion in 2015 Respiratory History Hx Asthma Yes Hx Sleep Apnea Yes Gastrointestinal History Hx Cholecystectomy Yes Hx Hernia Yes Hx Irritable Bowel Yes Genitourinary History Hx Genitourinary Disorders No Significant History Musculoskeletal History Hx Other Musculoskeletal Disorders Yes: R hip pain,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 Hematological History Hx Hematological Disorders No Significant History Endocrine History Hx Endocrine Disorders No Significant History HEENT History Hx HEENT Disorders No Significant History Integumentary History Hx Skin Disorders No Significant History Reproductive History Hx Hysterectomy Yes: October 2018 Psychosocial History Hx Anxiety Yes Hx Attention Deficit Hyperactivity Yes Disorder Pain History History of Any Previous or Ongoing No Significant History Instance of Pain Anesthesia History Hx Anesthesia Reactions No Significant History Evaluation Information Problem Diagnosis R shoulder tendinopathy Onset 08/14/2020 Cause moving pt onto stretching - using slides Subjective Information Paramedics needed help Query Text:As Reported By Patient/ transferring pt from bed to Family stretching - went and got the slides, she was on bed side - going to stretcher - at end of motion felt crunch sensation
--- NOTE | 2020-10-10 12:37 | PCPTNOTE ---
Patient called & cancelled scheduled appointment earlier this date due to sick child.
--- NOTE | 2020-10-24 12:17 | PCPTNOTE ---
Patient called to cancel appointment this date stating she was sick.
--- NOTE | 2020-11-26 08:49 | PCPTNOTE ---
PHYSICAL THERAPY DISCHARGE NOTE Admitting Provider: Attending Provider: Cristobal Nielsen MD Patient:Renea Hanna Date of :1980 Renea has not returned for any further treatments since 10/31/2020, therefore she will be discharged at this time. Patient?s initial visit was on 10/01/2020 11:00 and she had a total of 6 visits. The goals have been partially met. Renea's pain levels were decreasing, AROM and strength of R g-h jt were improving. Thank you for referring this Renea to [facility]. Please review, sign, date and return this discharge summary MOISE. I have been updated about Renea's current status and I agree with discharge from the above service at this time. Referring Physician Date
== END 2020-12-30 09:51 | disposition home or self-care (01) ==
LOC: ANHHIPT 11:00
PROVIDERS: PCP Internal Medicine; Visit Provider Orthopaedic Surgery
DX: M67.813 Other specified disorders of tendon, right shoulder (principal)
CPT/HCPCS: 97035; 97110; 97140; 97161

== ENCOUNTER 2021-03-08 22:05 | Emergency (ER) | payer OTHER, SELFPAY ==
--- NOTE | ~2021-03-08 | CT_ITS ---
EXAMINATION: CT abdomen pelvis w con DATE: 03/08/2021 23:45 INDICATION: Right upper quadrant and epigastric abdominal pain. TECHNIQUE: Computed tomography (CT) of the abdomen and pelvis was performed with 100 mL Omnipaque 350 intravenous contrast. Automated exposure control and iterative reconstruction technique were employe d. The dose-length product was 1227.20 mGy-cm. COMPARISON: CT abdomen and pelvis 08/08/2020 FINDINGS: The visualized portions of the lung bases demonstrate mild atelectasis. No pleural effusion . The heart size is normal. No pericardial effusion. The liver and spleen are normal. There are hebert es of cholecystectomy. The pancreas, adrenal glands, and right kidney are normal. There are peripelvi c cysts in left kidney measuring up to 18 mm. There is diverticulosis of the colon without evidence o f diverticulitis. The appendix is normal. There are three supraumbilical ventral hernias containing f at. There are no pathologically enlarged lymph nodes. There is no free intraperitoneal fluid. There i s severe lower lumbar spondylosis. IMPRESSION: 1. Three supraumbilical ventral hernias containing fat. Reviewed, dictated and finalized at location A. MOGRAPH CHIEF
[2021-03-08 22:10] VITALS: BP 140/78; PULSE 99; RESP 17; TEMP 36; O2SAT 100
--- NOTE | 2021-03-08 22:37 | ED.ABDPAIN ---
HPI - Abdominal Pain General Chief Complaint: Abdominal Pain Stated Complaint: my hernia hurts Time Seen by Provider: 03/08/21 22:19 Source: patient History of Present Illness HPI narrative: Patient presents with abdominal pain. Patient reports history of multiple hernias was scheduled for operative management however had a traumatic injury and surgical prior was delayed and she has not followed up with her surgeon. She presents in aches over the past 24 to 48 hours she has had increasing pain to her right upper quadrant and epigastric area where her hernias are present. Denies any sort of movement or pushing on area exacerbates her pain and causing nausea. Pain exacerbated by eating. Pain does not radiate. Related Data Home Medications Medication Instructions Recorded Confirmed tramadol 50 mg PO Q12H 01/11/19 12/04/20 dextroamphetamine-amphetamine 25 mg PO DAILY 08/15/20 12/04/20 [Adderall XR] cholecalciferol (vitamin D3) PO 08/20/20 12/04/20 Allergies Allergy/AdvReac Type Severity Reaction Status Date / Time No Known Allergies Allergy Verified 03/08/21 22:12 Review of Systems Review of Systems: CONSTITUTIONAL: Denies fever, chills, or sweats. EYES: Denies visual changes, redness, or discharge. ENT: Denies rhinorrhea, congestion, sore throat, or otalgia. CARDIOVASCULAR: Denies chest pain, palpitations, or edema. RESPIRATORY: Denies cough or dyspnea. GASTROINTESTINAL: Abdominal pain nausea GENITOURINARY: Denies dysuria or hematuria. SKIN: Denies rash or itching. MUSCULOSKELETAL: Denies back pain, joint pain, or myalgia. NEUROLOGIC: Denies headache, numbness, dizziness, or weakness. PSYCHIATRIC: Denies anxiety or depression. All systems reviewed & are unremarkable except as noted in HPI and below PMFSH Past Medical History Medical History Abnormal uterine bleeding Anemia Anxiety Asthma Bursitis of left knee Claustrophobia Gallbladder disease Hiatal hernia History of blood transfusion History of cardiac monitoring IBS (irritable bowel syndrome) Mitral valve prolapse Sleep apnea Supraventricular tachycardia Surgical History Surgical History H/O cardiac radiofrequency ablation H/O section H/O tubal ligation H/O: hysterectomy History of adenoidectomy History of cholecystectomy Hx of tonsillectomy Family History Family History Mother Family history of obesity Depression Family history of bipolar disorder Hypertension Family history of diabetes mellitus in first degree relative Family history of attention deficit hyperactivity disorder (ADHD) Family history of malignant neoplasm of breast in first degree relative Family history of kidney disease Father Family history of liver disease Family history of kidney disease Family history of malignant neoplasm of kidney Other Diabetes mellitus Family history of Alzheimer's disease Family history of malignant neoplasm of thyroid Social History Social History Smoking packs per day: 0.2 Smoking cigarettes per day: 4.0 Years smoked: 25 Smoking pack-years: 5.00 Tobacco type: cigarettes Second hand tobacco smoke exposure: No Alcohol intake: current Substance use: unknown 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 HEAD: Normocephalic, atraumatic. EYES: PERRLA and EOMI. ENT: Nares clear, no rhinorrhea or epistaxis. Mucous membranes moist. NECK: Supple. No masses. No JVD ABDOMEN: Moderate tenderness in the right upper quadrant and epigastric area soft, nondistended EXTREMITIES: Normal range of motion. No edema. SKIN: Warm, dry
[2021-03-08 23:08] LABS: Basophils Percent Auto 0.2 % (0.2-1.2); Eosinophils Absolute Auto 0.1 K/mm3 (0-0.3); Eosinophils Percent Auto 1.3 % (0-4.4); Hematocrit 36.7 % (37.0-47.0); Hemoglobin 12.8 g/dL (12.0-15.0); Immature Granulocyte Absolute 0.02 K/mm3 (0.00-0.031); Immature Granulocyte Percent A 0.2 % (0-0.5); Lymphocytes Absolute Auto 3.03 K/mm3 (0.9-3.2); Lymphocytes Percent Auto 34.7 % (18.3-44.2); Mean Corpuscular HGB Conc 34.9 g/dl (32-36); Mean Corpuscular Hemoglobin 31.2 pg (26-34); Mean Corpuscular Volume 89.5 fl (80-100); Mean Platelet Volume 9.5 fl (7.4-10.4); Monocytes Absolute Auto 0.5 K/mm3 (0.1-0.6); Monocytes Percent Auto 5.5 % (2.6-8.5); Neutrophils Absolute Auto 5.1 K/mm3 (1.3-6.7); Neutrophils Percent Auto 58.1 % (45.5-73.1); Platelet Count Result 273 k/mm3 (150-375); White Blood Count 8.7 K/mm3 (4.5-10.0)
[2021-03-08 23:11] LABS: Add Urine Microscopic? YES; Appearance Urine Clear (Clear); Bilirubin Urine Negative (Negative); Blood Urine Negative (Negative); Color Urine Yellow (Yellow); Glucose Urine UA Negative (Negative); Ketones Urine Negative (Negative); Leukocyte Esterase Ur Negative LEU/UL (Negative); Mucus Urine Rare /lpf; Nitrate Urine Negative (Negative); Protein Urine Negative (Negative); Squamous Epithelial Cell Urine Rare /hpf (Few); WBC Urine 0-3 /hpf
[2021-03-08 23:19] LABS: Alanine Aminotransferase 15 U/L (4-35); Albumin Level 4.2 g/dL (3.5-5.1); Alkaline Phosphatase 69 U/L (38-126); Anion Gap 5 mmol/L (8-16); Aspartate Amino Transferase 18 U/L (14-36); Bilirubin,Total 0.3 mg/dL (0.2-1.3); Blood Urea Nitrogen 15 mg/dL (7-17); Calcium 8.5 mg/dL (8.4-10.2); Carbon Dioxide 25 mmol/L (22-30); Chloride 107 mmol/L (98-107); Estimated Glomerular Filt Rate > 60; Glucose 107 mg/dL (65-110); Lactic Acid Reflex 0.7 mmol/L (0.7-2.1); Lipase 155 U/L (23-300); Potassium 4.1 mmol/L (3.4-5.0); Sodium 137 mmol/L (137-145)
[2021-03-08] MEDS: SODIUM CHLORIDE 0.9% IV 1,000 ML 999 ML IV CONT (23:19)
[2021-03-08] MEDS: ONDANSETRON INJ 4 MG/2 ML VIAL IV PUSH (23:19)
[2021-03-08] MEDS: MORPHINE SULFATE (*CRX) 4 MG/ML INJ IV PUSH (23:19)
[2021-03-09 00:11] VITALS: BP 118/73; PULSE 72; RESP 17; O2SAT 100
[2021-03-09 02:23] VITALS: BP 116/70; PULSE 80; RESP 16; O2SAT 100
== END 2021-03-09 02:10 | disposition home or self-care (01) ==
PROVIDERS: Emergency Provider Emergency Medicine; PCP Internal Medicine
DX: R10.11 Right upper quadrant pain (principal); J45.909 Unspecified asthma, uncomplicated; K58.9 Irritable bowel syndrome, unspecified; I34.1 Nonrheumatic mitral (valve) prolapse; D64.9 Anemia, unspecified; G47.30 Sleep apnea, unspecified; F41.9 Anxiety disorder, unspecified; F17.210 Nicotine dependence, cigarettes, uncomplicated; K43.9 Ventral hernia without obstruction or gangrene
CPT/HCPCS: 36415; 74177; 80053; 81001; 83605; 83690; 85025; 96361; 96374; 96375; 99284; J2270; J2405; J7030; Q9967

== ENCOUNTER 2022-03-12 16:01 | Outpatient (CLI) | payer OTHER, SELFPAY ==
--- NOTE | ~2022-03-12 | CT_ITS ---
EXAMINATION: CT abdomen pelvis wo con DATE: 03/12/2022 16:21 INDICATION: Incisional hernia. TECHNIQUE: Computed tomography (CT) of the abdomen and pelvis was performed without intravenous contr ast. Automated exposure control and iterative reconstruction technique were employed. The dose-length product was 1266.94 mGy-cm. COMPARISON: CT abdomen and pelvis 03/08/2021 FINDINGS: The visualized portions of the lung bases demonstrate minimal atelectasis. No pleural effus ion. The heart size is normal. No pericardial effusion. The liver is normal. There are changes of cho lecystectomy. The pancreas, adrenal glands, and kidneys are normal right kidney are normal. There are peripelvic cysts in left kidney measuring up to 17 mm. There is diverticulosis of the colon without evidence of diverticulitis. There are no dilated loops of bowel. The appendix is normal. There are no pathologically enlarged lymph nodes. There is no free intraperitoneal fluid. There are 3 supraumbili jhon ventral hernias containing fat. There is severe lower lumbar spondylosis. IMPRESSION: 1. Three supraumbilical ventral hernias containing fat. Reviewed, dictated and finalized at location A. ETT MACHINE OPERATOR HELPER
== END 2022-03-12 16:02 | disposition home or self-care (01) ==
PROVIDERS: PCP Internal Medicine; Visit Provider Surgery
DX: K43.9 Ventral hernia without obstruction or gangrene (principal); K43.2 Incisional hernia without obstruction or gangrene
CPT/HCPCS: 74176

== ENCOUNTER 2022-04-17 10:15 | Outpatient (CLI) | payer OTHER, SELFPAY ==
--- NOTE | 2022-04-17 10:23 | ECG_ITS ---
Measurements Intervals [place] Rate: 69 P: 62 CO: 141 QRS: 57 QRSD: 101 T: 62 QT: 407 QTc: 439 Interpretive Statements SINUS RHYTHM INCOMPLETE RIGHT BUNDLE BRANCH BLOCK NONSPECIFIC T-WAVE ABNORMALITY- ANT/INF LEADS BORDERLINE ECG COMPARED TO ECG 05/07/2020 06:35:42 T-WAVE ABNORMALITY NOW PRESENT Electronically Signed On 04-17-2022 12:32:49 UPHOLSTERY MECHANIC by Kev Altman D.O.
[2022-04-17 10:28] LABS: Basophils Percent Auto 0.4 % (0.2-1.2); Eosinophils Absolute Auto 0.1 K/mm3 (0-0.3); Eosinophils Percent Auto 1.3 % (0-4.4); Hematocrit 39.9 % (37.0-47.0); Hemoglobin 13.4 g/dL (12.0-15.0); Immature Granulocyte Absolute 0.02 K/mm3 (0.00-0.031); Immature Granulocyte Percent A 0.3 % (0-0.5); Lymphocytes Absolute Auto 3.27 K/mm3 (0.9-3.2); Lymphocytes Percent Auto 43.4 % (18.3-44.2); Mean Corpuscular HGB Conc 33.6 g/dl (32-36); Mean Corpuscular Hemoglobin 30.6 pg (26-34); Mean Corpuscular Volume 91.1 fl (80-100); Mean Platelet Volume 8.9 fl (7.4-10.4); Monocytes Absolute Auto 0.5 K/mm3 (0.1-0.6); Monocytes Percent Auto 6.8 % (2.6-8.5); Neutrophils Absolute Auto 3.6 K/mm3 (1.3-6.7); Neutrophils Percent Auto 47.8 % (45.5-73.1); Platelet Count Result 276 k/mm3 (150-375); Red Blood Count 4.38 M/mm3 (4.2-5.4); Red Cell Distribution Width 12.3 % (11.5-14.5); White Blood Count 7.5 K/mm3 (4.5-10.0)
[2022-04-17 10:34] LABS: Anion Gap 6 mmol/L (8-16); Blood Urea Nitrogen 15 mg/dL (7-17); Calcium 8.6 mg/dL (8.4-10.2); Carbon Dioxide 29 mmol/L (22-30); Chloride 105 mmol/L (98-107); Estimated Glomerular Filt Rate > 60; Glucose 101 mg/dL (65-110); Potassium 4.1 mmol/L (3.4-5.0); Sodium 140 mmol/L (137-145)
== END 2022-04-17 10:16 | disposition home or self-care (01) ==
PROVIDERS: PCP Internal Medicine; Visit Provider Surgery
DX: K43.9 Ventral hernia without obstruction or gangrene (principal); I45.10 Unspecified right bundle-branch block
CPT/HCPCS: 36415; 80048; 85025; 86850; 86900; 86901; 93005

== ENCOUNTER 2022-04-23 17:45 | Inpatient (IN) | payer OTHER, SELFPAY ==
[2022-04-12 13:09] VITALS: BMI 41.2
--- NOTE | 2022-04-12 13:15 | PC.NURSE ---
Report to the Outpatient Waiting Room, entrance under the green pavilion located off [facility], at time 10:00 on date 04/22/22. Planned Procedure Time: 12:00. Time changes happen often and if your time is changed the preop area will call you the afternoon before. - You and your visitor will be asked to self-screen and do not enter if you have any COVID symptoms. - Only one visitor is requested with a max of two and NO children visitors are allowed at this time. - The patient visitor may be requested to leave or wait in car when not with patient due to distancing restrictions. - A mask is optional within the hospital at this time. Patients may have clear liquids (water, carbonated beverages, clear teas, apple juice) until 3 hours prior to surgery (9:00) with a maximum of 20 ounces. - No food from midnight until time of surgery Take the following medications with a SIP of water the morning of surgery: TRAMADOL DO NOT STOP ANY OF YOUR OTHER PRESCRIPTION MEDICATIONS PRIOR TO SURGERY EXCEPT THE FOLLOWING Medications to discontinue per physician: VITAMINS/SUPPLEMENTS Date to take last dose: 04/18/22 Please no make-up, nail thai, hairspray, perfume, deodorant, or body powder the day of surgery. No jewelry (including any body piercings) or valuables the day of surgery, leave them at home. Please take a shower or bath the night before, or the morning of, surgery with an antibacterial soap. Wear comfortable, loose fitting clothing. - Jewelry must be removed prior to entering the operating room. Rings and piercings that are not removed may be cut off. - The hospital will not accept responsibility for valuables. - Please leave all valuables, including medications, at home the day of surgery. If you are going home after surgery, a licensed wagon driver must drive you home. - NO public transportation without another adult if you receive anesthesia. - We recommend that an adult stay with you for 24 hours following discharge. - We also recommend that you do not drive, make important decision, drink alcoholic beverages, or take any drugs that were not prescribed by your health care provider for at least 24 hours after your discharge time. Follow any additional instructions given to you from your surgeon. If you or anyone in your household have experienced Covid symptoms in the past week, please notify your surgeon or the nurse liaison at the phone number below for possible testing. Telephone instructions given to PT Alisha BAKER and asked if any additional questions and then verbalized understanding. Patient advised to call surgeon office or pre surgery nurse liaison [phone] if any additional questions.
[2022-04-22] VITALS (12 sets, daily range): BP systolic 105–143; BP diastolic 48–99; PULSE 64–88; RESP 12–20; TEMP 36.1–37.3; O2SAT 95–98
[2022-04-22] MEDS: LACTATED RINGERS 1,000 ML 30 ML IV CONT ×3 (10:15→16:44)
[2022-04-22] MEDS: ACETAMINOPHEN 500 MG TABLET 1000 MG PO (10:31)
[2022-04-22] MEDS: KETOROLAC 15 MG/ML VIAL (*BKC) IV PUSH (10:32)
--- NOTE | 2022-04-22 10:47 | WPDANESEPPF ---
Anes - Initial Pre Proc Eval Procedure: Operation Date: 04/22/22 12:00 Proposed Procedures p Ventral Hernia Repair with Mesh, Bilateral Transverse Myofascial Flap Advancement - Andriy Varma MD Date/Time: 04/22/22 10:47 Surgeon: Andriy Varma MD Pre Op Diagnosis: ventral hernia 7cm Patient Data Age: 41 Gender: F Height: 1.63 m Weight: 108.9 kg Allergies Allergy/AdvReac Type Severity Reaction Status Date / Time No Known Allergies Allergy Verified 04/22/22 10:29 Home Medications Medication Instructions Recorded Confirmed Type tramadol 50 mg tablet 50 mg PO Q12H 01/11/19 04/22/22 History ergocalciferol (vitamin D2) 1,250 1,250 mcg PO WEEKLY 04/12/22 04/22/22 History mcg (50,000 unit) capsule (Vitamin D2) polyethylene glycol 3350 17 17 g PO DAILY 04/12/22 04/22/22 History gram/dose oral powder (Miralax) Patient hx anesthesia problems: none Family hx anesthesia problems: none Results Review: All pre-operative results and documents have been reviewed as part of the pre-operative evaluation. [facility] Past Medical History Medical History Abnormal uterine bleeding Anemia Anxiety Asthma Bursitis of left knee Claustrophobia Gallbladder disease Hiatal hernia History of blood transfusion History of cardiac monitoring IBS (irritable bowel syndrome) Mitral valve prolapse Sleep apnea Supraventricular tachycardia Surgical History Surgical History H/O cardiac radiofrequency ablation H/O section H/O tubal ligation H/O: hysterectomy History of adenoidectomy History of cholecystectomy Hx of tonsillectomy Family History Family History Mother Family history of obesity Depression Family history of bipolar disorder Hypertension Family history of diabetes mellitus in first degree relative Family history of attention deficit hyperactivity disorder (ADHD) Family history of malignant neoplasm of breast in first degree relative Family history of kidney disease Father Family history of liver disease Family history of kidney disease Family history of malignant neoplasm of kidney Other Diabetes mellitus Family history of Alzheimer's disease Family history of malignant neoplasm of thyroid Social History Social History Smoking packs per day: 1 Smoking cigarettes per day: 20.0 Years smoked: 15 Smoking pack-years: 15.00 Smoking status: Current some day smoker Tobacco type: cigarettes and e-cigarettes/vaping Second hand tobacco smoke exposure: No Smoking end date: 03/10/21 Additional smoking assessment comments: NOW VAPING OCCASIONALLY Alcohol intake: never Substance use: current Substance use type: marijuana Other substance usage details: EDIBLES FOR PAIN Living arrangements: with family Occupation/Education: occupation 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 [employer] Gender identity (if verbalized by the patient): Female Spiritual care concerns: No Anes - Eval Final PreProcedure Day of Procedure 04/22/22 10:47 Patient weight: morbidly obese Heart: regular rate and rhythm Lungs: clear to auscultation Airway: Mallampati scale class 1 Neurological: alert and oriented Last oral intake: >/= 8 hours ASA classification: III Emergent: no Anesthetic plan: proceed Anesthesia type and monitoring: general ETT and standard monitoring Results Review: All pre-operative results and documents have been reviewed as part of the pre-operative evaluation. Informed Consent: The patient's anesthetic plan and its attendant risks and benefits were discussed with the patient/family/POA. Questions were solicited and answers provided to the satisfaction of the patient/family/POA.
[2022-04-22] MEDS: MIDAZOLAM HCL (*CRX) 2 MG/2 ML VIAL IV PUSH (10:49)
--- NOTE | 2022-04-22 11:22 | WPDHPUPDATE1 ---
History and Physical Update Update Date/Time: 04/22/22 11:22 History and Physical has been reviewed, including an updated exam of the patient. There are NO changes in the patient's condition. Risks, benefits, and alternatives have been discussed and questions answered. Patient agrees to proceed with procedure.
[2022-04-22] MEDS: ceFAZolin 2 GM/D5W 50 ML 2 GM/50 ML BAG IVPB (11:45)
[2022-04-22] MEDS: fentaNYL CITRATE INJ (*CRX) 100 MCG/2 ML VIAL 25 MCG IV PUSH ×7 (15:58→17:05)
--- NOTE | 2022-04-22 16:32 | W.PM.PROC2 ---
Procedure Note - Detailed Date of Procedure 04/22/22 Pre-op Diagnosis Multiple ventral hernias of the supraumbilical abdominal wall approximately 7 cm Post-op Diagnosis Other (Multiple supraumbilical ventral hernias totaling 12 cm of defect) Procedure Performed Repair multiple ventral incisional hernias with mesh, total 12 cm of hernia defect; bilateral transversus abdominis myofascial flap advancement, 5 cm on the left, 4 cm on the right. Surgeon Andriy Varma MD Morale Officer Susan TAM, Ramos TAM Anesthesia General Indications The patient is a 41-year-old woman who has had several C-sections as well as a laparoscopic cholecystectomy and laparoscopic tubal ligation. She has developed a particularly symptomatic incisional hernia in the upper midline that has been increasing in size. She also has 2 more incisional hernias above the umbilicus. She has morbid obesity and a history of smoking. She is taken to surgery now for repair with mesh and transversus abdominis myofascial flap advancement. Findings The epigastric hernia defect was considerably larger than what was assessed by CT scan and in the office. It was actually a 7 cm defect with the majority of the defect on the patient's left side. Probably only 2 cm of the defect were on the right side. She also had a supraumbilical 3 cm hernia defect near the umbilicus but at least 5 cm above it. There was also a 2 cm defect cephalad to this and also of at least 5 cm above the lower most defect. The total cm of defect was actually 12 cm. Flap advancement of 5 cm on the left and 4 cm on the right was required. Bilateral transversus abdominis release was required for this. Two extra-large pieces of polypropylene mesh were required to cover the entire abdominal wall. Description of Procedure The patient was checked in the preoperative holding area. She was taken to surgery and induced into general anesthesia. Knight catheter was placed. The abdomen was prepped and draped. Incision was made primarily above the umbilicus but also extended slightly below the umbilicus. We dissected through the midline fascia and encountered the 2 hernias that were in the mid abdomen but still above the umbilicus. Size was as noted above. These defects were primarily on the patient's right side. We dissected through the midline fascia and entered the peritoneal cavity. The fascial opening was extended the length of the wound. I then put the hand in the abdomen and found the uppermost defect was was actually in the epigastrium. It had been getting larger and was even larger today than it was on previous imaging and exam. I opened the incision cephalad to above the defect. We then dissected down to this hernia defect. It was a 7 cm defect with probably 5 cm on the patient's left and 2 cm on the right. The chronically incarcerated properitoneal fat was dissected away and discarded. Other properitoneal fat in the hernia sacs was discarded as well. I took down any anterior abdominal wall adhesions. General abdominal exploration was negative. Of blue towel was then placed to quarantine the abdominal contents from the abdominal wall dissection. I started on the patient's right and dissected the left-sided abdominal wall 1st. The posterior rectus fascia was entered near the midline and near the medial most aspect of the rectus muscle. This opening was then extended cephalad and caudad the length of the wound. Cautery was used for hemostasis. The posterior rectus fascia was then carefully dissected off the rectus muscle using primarily blunt dissection. We then continued this dissection all the way to the lateral aspect of the rectus muscle. I then extended the dissection on the patient's left side of the abdomen and dividing the medial aspect of the posterior rectus fascia up to a near the xiphoid process. I then completed the dissection of the posterior rectus fascia off the rectus muscle up to the lower most
[2022-04-22] MEDS: MIDAZOLAM HCL (*CRX) 2 MG/2 ML VIAL 1 MG IV PUSH (16:40)
--- NOTE | 2022-04-22 17:30 | ADMGEN ---
This patient, Renea Hanna, was admitted to Medical Room 249-01. Patient/family oriented to hospital policies and general routines including ID bracelet, bed and alarms, visiting hours, pain management, procedures, bathroom and other care routines, personal items, smoking policy, room service/diet, and visiting hours. Information on how to activate the Rapid Response Team has been discussed. Patient/Family are encouraged to report perceived risks to care and to ask questions if they do not understand what they are told or what they should do.
[2022-04-22] MEDS: MORPHINE SULFATE (*CRX) 4 MG/ML INJ IV PUSH (17:33)
[2022-04-22] MEDS: LACTATED RINGERS 1,000 ML 125 ML IV CONT (17:34)
[2022-04-22] MEDS: MORPHINE SULFATE (*CRX) 2 MG/ML INJ IV PUSH (18:29)
[2022-04-22] MEDS: IBUPROFEN IV 800 MG/200 ML 800 MG/200 ML BAG 400 MG IVPB ×2 (18:43→23:20)
[2022-04-22] MEDS: LORazepam INJ (*CRX) 2 MG/ML VIAL 1 MG IV PUSH (18:54)
[2022-04-22] MEDS: MORPHINE SULFATE (*CRX) 4 MG/ML INJ 6 MG IV PUSH ×2 (20:15→22:22)
[2022-04-22] MEDS: FAMOTIDINE 20 MG/2 ML VIAL IV PUSH (20:27)
--- NOTE | ~2022-04-23 | XR_ITS ---
EXAMINATION: XR chest 1V portable DATE: 04/22/2022 16:04 INDICATION: Shortness of breath. TECHNIQUE: A single frontal view of the chest was obtained. COMPARISON: Chest single view 05/07/2020, CT abdomen and pelvis 03/12/2022 FINDINGS: The chest demonstrates clear lungs without pneumonia, pleural effusion, or pneumothorax. Th e heart size is normal. IMPRESSION: 1. No acute cardiopulmonary disease. Reviewed, dictated and finalized at location A.
[2022-04-23 00:14] VITALS: BP 120/72; PULSE 52; RESP 18; TEMP 35.9; O2SAT 95
[2022-04-23] MEDS: MORPHINE SULFATE (*CRX) 4 MG/ML INJ 6 MG IV PUSH ×6 (00:31→20:49)
[2022-04-23] MEDS: LORazepam INJ (*CRX) 2 MG/ML VIAL 1 MG IV PUSH ×3 (00:32→20:49)
[2022-04-23 04:42] VITALS: BP 114/77; PULSE 58; RESP 20; TEMP 36.7; O2SAT 94
[2022-04-23] MEDS: IBUPROFEN IV 800 MG/200 ML 800 MG/200 ML BAG 400 MG IVPB ×3 (05:09→18:24)
[2022-04-23] MEDS: ACETAMINOPHEN 500 MG TABLET PO (05:41)
[2022-04-23 05:59] LABS: Hematocrit 32.1 % (37.0-47.0); Hemoglobin 11.2 g/dL (12.0-15.0); Mean Corpuscular HGB Conc 34.9 g/dl (32-36); Mean Corpuscular Hemoglobin 30.4 pg (26-34); Platelet Count Result 252 k/mm3 (150-375); Red Blood Count 3.69 M/mm3 (4.2-5.4); Red Cell Distribution Width 12.2 % (11.5-14.5); White Blood Count 13.8 K/mm3 (4.5-10.0)
[2022-04-23 06:18] LABS: Anion Gap 2 mmol/L (8-16); Blood Urea Nitrogen 10 mg/dL (7-17); Calcium 8.1 mg/dL (8.4-10.2); Carbon Dioxide 27 mmol/L (22-30); Chloride 103 mmol/L (98-107); Estimated CRCL calculation 130 ml/min; Estimated Glomerular Filt Rate > 60; Glucose 125 mg/dL (65-110); Potassium 4.1 mmol/L (3.4-5.0); Sodium 132 mmol/L (137-145)
[2022-04-23] MEDS: MORPHINE SULFATE (*CRX) 2 MG/ML INJ 4 MG IV PUSH (07:57)
[2022-04-23] MEDS: FAMOTIDINE 20 MG/2 ML VIAL IV PUSH (09:52)
[2022-04-23] MEDS: polyethylene glycoL 3350 17 GM POWD.PACK PO (09:52)
[2022-04-23] MEDS: ENOXAPARIN 40 MG/0.4 ML SYRINGE SUB-Q (09:52)
[2022-04-23] MEDS: LACTATED RINGERS 1,000 ML 125 ML IV CONT ×2 (09:53→20:48)
[2022-04-23 11:21] VITALS: BP 110/68; PULSE 75; RESP 18; TEMP 36.3; O2SAT 97
--- NOTE | 2022-04-23 13:36 | WPDANESPN ---
Anes - Prog Note Post-Op Date/Time: 04/23/22 13:36 Cardiovascular status: normal Respiratory status: normal Airway patency: baseline Mental status: baseline Post-Op hydration status: normal Vital Signs: Last Vital Signs Temp 97.4 F L 04/23/22 11:21 Pulse 75 04/23/22 11:21 Resp 18 04/23/22 11:21 BP 110/68 04/23/22 11:21 Pulse Ox 97 04/23/22 11:21 O2 Del Method Room Air 04/23/22 07:40 O2 Flow Rate 2 04/22/22 18:37 Pain Score (VAS): 0/10 I/O: Intake & Output 04/22/22 04/23/22 04/23/22 23:59 07:59 15:59 Intake Total 1100 1890 200 Output Total 8242 1370 55 Balance -7142 520 145 Laboratory Tests 04/23/22 05:22 04/23/22 05:30 04/23/22 04/23/22 05:22 05:30 WBC 13.8 H RBC 3.69 L Hgb 11.2 L Hct 32.1 L MCV 87.0 MCH 30.4 MCHC 34.9 RDW 12.2 Plt Count 252 MPV 9.0 Sodium 132 L Potassium 4.1 Chloride 103 Carbon Dioxide 27 Anion Gap 2 L BUN 10 D Creatinine 0.60 L Estim Creat Clear Calc 130 Estimated GFR > 60 Glucose 125 H Calcium 8.1 L Post-procedural complaints: none Patient Feedback: Patient satisfied with anesthetic care.
[2022-04-23 15:09] VITALS: BP 106/56; PULSE 88; RESP 18; TEMP 36.5; O2SAT 93
--- NOTE | 2022-04-23 16:46 | PM.PNGS ---
Progress Note: A&P Assessment and Plan (1) Incisional hernia: Qualifiers: Obstruction and gangrene presence: without obstruction or gangrene Qualified Code(s): K43.2 - Incisional hernia without obstruction or gangrene Code(s): K43.2 - Incisional hernia without obstruction or gangrene Status: Acute Assessment and Plan: Patient requiring very high doses of morphine as well as scheduled dose of IV ibuprofen for pain control. However she is getting up and walking and is tolerating liquids. Will repeat her labs again tomorrow, advanced to low-fiber diet, continue up in chair and ambulate as appropriate. Doing well so far. Subjective Subjective Date/Time Seen: 04/23/22 16:46 Post Op day: 1 Patient reports: still having pain (Requiring scheduled dose of IV ibuprofen as well as 4 and 6 mg of morphine sulfate IV q.2h p.r.n.), tolerating liquids well, no flatus, no bowel movement and afebrile Exam Const: General: cooperative, comfortable, no acute distress, alert and awake; No confusion Nutritional Appearance: overweight Orientation/consciousness: patient oriented x3 and No confusion GI: Inspection: incision (Dressing dry and intact) and other (Mostly sanguinous fluid in both KIRBY drains) GI Palp: Yes Soft to palpation, Yes Tenderness to palpation present (GI) (Diffusely tender), No Guarding due to palpation present (GI) and No Rebound tenderness present Auscultation: Hypoactive bowel sounds present Neuro: General: patient oriented x3, no focal motor deficits and No confusion Extrem: General: no calf tenderness and no edema Psych: Affect: normal affect Insight: Good insight present (Psych) Judgement: Good judgement present (Psych) Objective Data Vital Signs Vital Signs: Vital Signs - 24 hr 04/22/22 17:25 04/22/22 17:40 04/22/22 18:10 Temperature 37.3 C 37.2 C 37.2 C Pulse Rate 68 66 68 Respiratory Rate 18 18 18 Blood Pressure 134/71 132/74 142/75 H Pulse Oximetry 97 97 98 Oxygen Delivery Oxygen Flow Rate 04/22/22 19:10 04/22/22 18:37 04/22/22 21:49 Temperature 37.1 C 36.1 C L Pulse Rate 81 64 Respiratory Rate 18 18 Blood Pressure 125/72 121/76 Pulse Oximetry 95 95 95 Oxygen Delivery Nasal Cannula Oxygen Flow Rate 2 04/22/22 20:00 04/23/22 00:14 04/23/22 04:42 Temperature 35.9 C L 36.7 C Pulse Rate 64 52 L 58 L Respiratory Rate 18 18 20 Blood Pressure 120/72 114/77 Pulse Oximetry 95 95 94 Oxygen Delivery Room Air Oxygen Flow Rate 04/23/22 07:40 04/23/22 11:21 Temperature 36.3 C L Pulse Rate 75 Respiratory Rate 18 Blood Pressure 110/68 Pulse Oximetry 97 Oxygen Delivery Room Air Oxygen Flow Rate Intake/Output Intake/Output: Intake & Output 04/20/22 04/21/22 04/22/22 04/23/22 23:59 23:59 23:59 23:59 Intake Total 2150 2090 Output Total 8242 1425 Balance -6092 665 Meds/Results Medications: Active Medications Generic Name Dose Route Start Last Admin Trade Name Freq PRN Reason Stop Dose Admin Acetaminophen 500 mg 04/22/22 17:06 04/23/22 05:41 Acetaminophen 500 Mg Tablet PO 500 mg Q6H PRN Administration Mild Pain (1-3) or Fever Enoxaparin Sodium 40 mg 04/23/22 09:00 04/23/22 09:52 Enoxaparin 40 Mg/0.4 Ml Syringe SUB-Q 40 mg DAILY KENNA Administration Ergocalciferol 50,000 units 04/25/22 09:00 Ergocalciferol 50,000 Units Capsule PO Souza@0900 KENNA Lactated Ringer's 1,000 mls @ 80 mls/hr 04/22/22 17:06 04/23/22 09:53 Lr - Lactated Ringers Iv IV CONT 125 mls/hr .[id number] KENNA Administration Ibuprofen 800 mg in 200 mls @ 400 mls/hr 04/23/22 00:00 04/23/22 12:16 Caldolor 800 Mg/200 Ml IVPB Infused Q6HR KENNA Infusion Lorazepam 1 mg 04/22/22 18:22 04/23/22 07:57 Lorazepam Inj (*Crx) 2 Mg/Ml Vial IV PUSH 1 mg Q6H PRN Administration Anxiety Morphine Sulfate 6 mg 04/22/22 18:23 04/23/22 14:45 Morphine Sulfate (*Crx) 4 Mg/Ml Inj IV PUSH 6 mg Q
[2022-04-23 20:00] VITALS: PULSE 80; RESP 18; O2SAT 97
[2022-04-23] MEDS: FAMOTIDINE 20 MG TABLET PO (20:46)
[2022-04-23] MEDS: SENNA/DOCUSATE SODIUM TABLET 2 TAB PO (20:46)
[2022-04-23 21:41] VITALS: BP 150/55; PULSE 85; RESP 16; TEMP 36.6; O2SAT 96
[2022-04-24] MEDS: MORPHINE SULFATE (*CRX) 4 MG/ML INJ 6 MG IV PUSH ×6 (02:07→21:13)
[2022-04-24] MEDS: IBUPROFEN IV 800 MG/200 ML 800 MG/200 ML BAG 400 MG IVPB ×3 (05:50→16:55)
[2022-04-24 06:06] LABS: Hematocrit 29.6 % (37.0-47.0); Hemoglobin 9.8 g/dL (12.0-15.0); Mean Corpuscular HGB Conc 33.1 g/dl (32-36); Mean Corpuscular Hemoglobin 30.4 pg (26-34); Mean Corpuscular Volume 91.9 fl (80-100); Mean Platelet Volume 9.1 fl (7.4-10.4); Platelet Count Result 216 k/mm3 (150-375); Red Blood Count 3.22 M/mm3 (4.2-5.4); Red Cell Distribution Width 12.5 % (11.5-14.5); White Blood Count 8.4 K/mm3 (4.5-10.0)
[2022-04-24 06:15] VITALS: BP 128/77; PULSE 92; RESP 16; TEMP 36.6; O2SAT 96
[2022-04-24 06:18] LABS: Anion Gap 3 mmol/L (8-16); Blood Urea Nitrogen 7 mg/dL (7-17); Calcium 7.7 mg/dL (8.4-10.2); Carbon Dioxide 30 mmol/L (22-30); Chloride 105 mmol/L (98-107); Estimated CRCL calculation 130 ml/min; Estimated Glomerular Filt Rate > 60; Glucose 90 mg/dL (65-110); Potassium 3.6 mmol/L (3.4-5.0); Sodium 138 mmol/L (137-145)
[2022-04-24] MEDS: LORazepam INJ (*CRX) 2 MG/ML VIAL 1 MG IV PUSH ×2 (06:40→21:13)
[2022-04-24] MEDS: FAMOTIDINE 20 MG TABLET PO ×2 (09:32→21:13)
[2022-04-24] MEDS: ENOXAPARIN 40 MG/0.4 ML SYRINGE SUB-Q (09:32)
[2022-04-24] MEDS: polyethylene glycoL 3350 17 GM POWD.PACK PO (09:32)
[2022-04-24] MEDS: methocarbamoL 500 MG TABLET PO ×4 (09:39→21:12)
[2022-04-24] MEDS: LACTATED RINGERS 1,000 ML 125 ML IV CONT (12:28)
[2022-04-24] MEDS: ACETAMINOPHEN 500 MG TABLET PO (12:31)
--- NOTE | 2022-04-24 12:46 | PM.PNGS ---
Progress Note: A&P Assessment and Plan (1) Incisional hernia: Qualifiers: Obstruction and gangrene presence: without obstruction or gangrene Qualified Code(s): K43.2 - Incisional hernia without obstruction or gangrene Code(s): K43.2 - Incisional hernia without obstruction or gangrene Status: Acute Assessment and Plan: Making progress. Pain is less severe but now having muscle spasms on the left side. Will start Robaxin 500 mg q.6 hours. Continue to ambulate. She is voiding with her Knight catheter out. She is eating adequately and I will discontinue the IV fluids. Some postoperative anemia and will continue to watch this. KIRBY drains putting out appropriate amounts and serosanguineous fluid as expected. Overall doing well. Will need at least a couple more days in the hospital. Subjective Subjective Date/Time Seen: 04/24/22 12:46 Post Op day: 2 Patient reports: still having pain (Mostly left-sided, severe with muscle spasm), tolerating liquids well, no flatus, no bowel movement and afebrile Exam Const: General: comfortable and no acute distress; No confusion Orientation/consciousness: patient oriented x3 and No confusion GI: Inspection: non-distended and incision (Dry and healing, serosanguineous per KIRBY drains) GI Palp: Yes Soft to palpation, Yes Tenderness to palpation present (GI) (Diffuse), No Guarding due to palpation present (GI) and No Rebound tenderness present Neuro: General: patient oriented x3, no focal motor deficits and No confusion Extrem: General: no calf tenderness and no edema Psych: Affect: normal affect Insight: Good insight present (Psych) Judgement: Good judgement present (Psych) Objective Data Vital Signs Vital Signs: Vital Signs - 24 hr 04/23/22 15:09 04/23/22 21:41 04/23/22 20:00 Temperature 36.5 C 36.6 C Pulse Rate 88 85 80 Respiratory Rate 18 16 18 Blood Pressure 106/56 L 150/55 H Pulse Oximetry 93 96 97 Oxygen Delivery Room Air 04/24/22 06:15 04/24/22 09:30 Temperature 36.6 C Pulse Rate 92 Respiratory Rate 16 Blood Pressure 128/77 Pulse Oximetry 96 Oxygen Delivery Room Air Intake/Output Intake/Output: Intake & Output 04/21/22 04/22/22 04/23/2204/24/23 23:59 23:59 23:59 23:59 Intake Total 2150 3961 1600 Output Total 8271 8228 5049 Balance -6092 617 -2340 Meds/Results Medications: Active Medications Generic Name Dose Route Start Last Admin Trade Name Freq PRN Reason Stop Dose Admin Acetaminophen 500 mg 04/22/22 17:06 04/23/22 05:41 Acetaminophen 500 Mg Tablet PO 500 mg Q6H PRN Administration Mild Pain (1-3) or Fever Enoxaparin Sodium 40 mg 04/23/22 09:00 04/24/22 09:32 Enoxaparin 40 Mg/0.4 Ml Syringe SUB-Q 40 mg DAILY KENNA Administration Ergocalciferol 50,000 units 04/25/22 09:00 Ergocalciferol 50,000 Units Capsule PO Souza@0900 KENNA Famotidine 20 mg 04/23/22 21:00 04/24/22 09:32 Famotidine 20 Mg Tablet PO 20 mg Q12HR KENNA Administration Ibuprofen 800 mg in 200 mls @ 400 mls/hr 04/23/22 00:00 04/24/22 12:29 Caldolor 800 Mg/200 Ml IVPB 400 mls/hr Q6HR KENNA Administration Lorazepam 1 mg 04/22/22 18:22 04/24/22 06:40 Lorazepam Inj (*Crx) 2 Mg/Ml Vial IV PUSH 1 mg Q6H PRN Administration Anxiety Methocarbamol 500 mg 04/24/22 09:00 04/24/22 12:30 Methocarbamol 500 Mg Tablet PO 500 mg QID KENNA Administration Morphine Sulfate 6 mg 04/22/22 18:23 04/24/22 12:30 Morphine Sulfate (*Crx) 4 Mg/Ml Inj IV PUSH 6 mg Q2H PRN Administration Pain Rated 7-10 Morphine Sulfate 4 mg 04/22/22 18:23 04/23/22 07:57 Morphine Sulfate (*Crx) 2 Mg/Ml Inj IV PUSH 4 mg Q2H PRN Administration Pain Rated 4-6 Naloxone HCl 0.1 mg 04/22/22 17:06 Naloxone Hcl 0.4 Mg/Ml Vial IV PUSH Q2M PRN Opiate Reversal Ondansetron HCl 4 mg 04/22/22 17:06 Ondansetron Inj 4 Mg/2 Ml Vial IV PUSH Q4H PRN Nausea An
[2022-04-24] MEDS: oxyCODONE/ACETAMINOPHEN (*CRX) 5-325 MG TABLET 1 TABLET PO (18:17)
[2022-04-24 20:00] VITALS: PULSE 89; RESP 14; O2SAT 95
[2022-04-24] MEDS: SENNA/DOCUSATE SODIUM TABLET 2 TAB PO (21:12)
[2022-04-24 21:34] VITALS: BP 119/58; PULSE 89; RESP 14; TEMP 36.8; O2SAT 95
[2022-04-25] MEDS: oxyCODONE/ACETAMINOPHEN (*CRX) 10-325 MG TABLET 1 TAB PO ×2 (00:43→06:33)
[2022-04-25] MEDS: MORPHINE SULFATE (*CRX) 4 MG/ML INJ 6 MG IV PUSH ×5 (00:43→21:31)
[2022-04-25] MEDS: IBUPROFEN IV 800 MG/200 ML 800 MG/200 ML BAG 400 MG IVPB ×2 (00:44→06:34)
[2022-04-25 05:38] LABS: Hematocrit 27.5 % (37.0-47.0); Hemoglobin 9.1 g/dL (12.0-15.0); Mean Corpuscular HGB Conc 33.1 g/dl (32-36); Mean Corpuscular Hemoglobin 30.2 pg (26-34); Mean Corpuscular Volume 91.4 fl (80-100); Mean Platelet Volume 8.9 fl (7.4-10.4); Platelet Count Result 227 k/mm3 (150-375); Red Blood Count 3.01 M/mm3 (4.2-5.4); Red Cell Distribution Width 12.7 % (11.5-14.5); White Blood Count 6.7 K/mm3 (4.5-10.0)
[2022-04-25 05:44] LABS: Anion Gap 3 mmol/L (8-16); Blood Urea Nitrogen 8 mg/dL (7-17); Calcium 7.9 mg/dL (8.4-10.2); Carbon Dioxide 30 mmol/L (22-30); Chloride 105 mmol/L (98-107); Estimated CRCL calculation 113 ml/min; Estimated Glomerular Filt Rate > 60; Glucose 90 mg/dL (65-110); Potassium 3.5 mmol/L (3.4-5.0); Sodium 138 mmol/L (137-145)
[2022-04-25 07:14] VITALS: BP 121/65; PULSE 88; RESP 16; TEMP 36.6; O2SAT 97
[2022-04-25] MEDS: ENOXAPARIN 40 MG/0.4 ML SYRINGE SUB-Q (08:11)
[2022-04-25] MEDS: polyethylene glycoL 3350 17 GM POWD.PACK PO ×2 (08:11→15:55)
[2022-04-25] MEDS: FAMOTIDINE 20 MG TABLET PO ×2 (08:12→21:32)
[2022-04-25] MEDS: methocarbamoL 500 MG TABLET PO ×4 (08:12→21:32)
[2022-04-25] MEDS: ERGOCALCIFEROL 50,000 UNITS CAPSULE 50000 UNITS PO (08:12)
--- NOTE | 2022-04-25 10:11 | PM.PNGS ---
Progress Note: A&P Assessment and Plan (1) Incisional hernia: Qualifiers: Obstruction and gangrene presence: without obstruction or gangrene Qualified Code(s): K43.2 - Incisional hernia without obstruction or gangrene Code(s): K43.2 - Incisional hernia without obstruction or gangrene Status: Acute Assessment and Plan: Making progress. Feels better today than either of the 2 previous days. Up more. Tolerating low-fiber diet well. Still no bowel movement. I will increase her MiraLax to twice a day. If still no bowel movement today, will try an enema tomorrow. H&H low but stable. Wound is healing well and repair is intact. Recheck labs and exam again tomorrow. Subjective Subjective Date/Time Seen: 04/25/22 10:11 Post Op day: 3 Patient reports: still having pain (Not quite as severe, still gets sharp left-sided abdominal pain like a spasm.), voiding w/o difficulty, no bowel movement and afebrile Exam Const: General: comfortable and no acute distress; No confusion Orientation/consciousness: patient oriented x3 and No confusion GI: Inspection: non-distended, incision (Dressing dry and intact) and other (KIRBY drains mostly serous, slight blood tinge) GI Palp: Yes Soft to palpation, Yes Tenderness to palpation present (GI) (Mostly left-sided tenderness), No Guarding due to palpation present (GI) and No Rebound tenderness present Neuro: General: patient oriented x3, no focal motor deficits and No confusion Extrem: General: no calf tenderness and no edema Psych: Affect: normal affect Insight: Good insight present (Psych) Judgement: Good judgement present (Psych) Objective Data Vital Signs Vital Signs: Vital Signs - 24 hr 04/24/22 21:34 04/24/22 20:00 04/25/22 07:14 Temperature 36.8 C 36.6 C Pulse Rate 89 89 88 Respiratory Rate 14 14 16 Blood Pressure 119/58 L 121/65 Pulse Oximetry 95 95 97 Oxygen Delivery Room Air Intake/Output Intake/Output: Intake & Output 04/22/22 04/23/22 04/24/22 04/25/22 23:59 23:59 23:59 23:59 Intake Total 2150 3965 2760 790 Output Total 8242 3025 6080 1110 Balance -6092 940 -3320 -320 Meds/Results Medications: Active Medications Generic Name Dose Route Start Last Admin Trade Name Freq PRN Reason Stop Dose Admin Acetaminophen 500 mg 04/22/22 17:06 04/24/22 12:31 Acetaminophen 500 Mg Tablet PO 500 mg Q6H PRN Administration Mild Pain (1-3) or Fever Enoxaparin Sodium 40 mg 04/23/22 09:00 04/25/22 08:11 Enoxaparin 40 Mg/0.4 Ml Syringe SUB-Q 40 mg DAILY KENNA Administration Ergocalciferol 50,000 units 04/25/22 09:00 04/25/22 08:12 Ergocalciferol 50,000 Units Capsule PO 50,000 units Souza@0900 KENNA Administration Famotidine 20 mg 04/23/22 21:00 04/25/22 08:12 Famotidine 20 Mg Tablet PO 20 mg Q12HR KENNA Administration Ibuprofen 800 mg in 200 mls @ 400 mls/hr 04/25/22 10:11 Caldolor 800 Mg/200 Ml IVPB Q6HR PRN Mild Pain (1-3) or Headache Lorazepam 1 mg 04/22/22 18:22 04/24/22 21:13 Lorazepam Inj (*Crx) 2 Mg/Ml Vial IV PUSH 1 mg Q6H PRN Administration Anxiety Methocarbamol 500 mg 04/24/22 09:00 04/25/22 08:12 Methocarbamol 500 Mg Tablet PO 500 mg QID KENNA Administration Morphine Sulfate 6 mg 04/22/22 18:23 04/25/22 06:33 Morphine Sulfate (*Crx) 4 Mg/Ml Inj IV PUSH 6 mg Q2H PRN Administration Pain Rated 7-10 Morphine Sulfate 4 mg 04/22/22 18:23 04/23/22 07:57 Morphine Sulfate (*Crx) 2 Mg/Ml Inj IV PUSH 4 mg Q2H PRN Administration Pain Rated 4-6 Naloxone HCl 0.1 mg 04/22/22 17:06 Naloxone Hcl 0.4 Mg/Ml Vial IV PUSH Q2M PRN Opiate Reversal Ondansetron HCl 4 mg 04/22/22 17:06 Ondansetron Inj 4 Mg/2 Ml Vial IV PUSH Q4H PRN Nausea And Vomiting Oxycodone/Acetaminophen 1 tablet 04/24/22 12:43 04/24/22 18:17 Oxycodone/Acetaminophen (*Crx) 5-325 Mg Tablet PO 1 tablet Q4H PRN Administra
[2022-04-25] MEDS: BUMETANIDE INJ 1 MG/4 ML VIAL 2 MG IV PUSH (11:31)
[2022-04-25] MEDS: POTASSIUM CHLORIDE 20 MEQ TABLET 40 MEQ PO (11:33)
[2022-04-25] MEDS: ONDANSETRON INJ 4 MG/2 ML VIAL IV PUSH (12:15)
[2022-04-25] MEDS: POTASSIUM CHLORIDE 20 MEQ TABLET.ER PO (15:56)
[2022-04-25 18:00] VITALS: BP 111/67; PULSE 91; RESP 14; TEMP 36.9; O2SAT 98
[2022-04-25] MEDS: oxyCODONE/ACETAMINOPHEN (*CRX) 5-325 MG TABLET 1 TABLET PO (18:21)
[2022-04-25 20:00] VITALS: PULSE 90; RESP 16; O2SAT 96
[2022-04-25 20:47] VITALS: BP 125/65; PULSE 90; RESP 16; TEMP 37.1; O2SAT 96
[2022-04-25] MEDS: LORazepam INJ (*CRX) 2 MG/ML VIAL 1 MG IV PUSH (21:31)
[2022-04-25] MEDS: SENNA/DOCUSATE SODIUM TABLET 2 TAB PO (21:32)
[2022-04-26] MEDS: oxyCODONE/ACETAMINOPHEN (*CRX) 10-325 MG TABLET 1 TAB PO ×4 (03:08→20:42)
[2022-04-26] MEDS: MORPHINE SULFATE (*CRX) 2 MG/ML INJ 4 MG IV PUSH (03:36)
[2022-04-26 04:54] LABS: Hematocrit 28.1 % (37.0-47.0); Hemoglobin 9.7 g/dL (12.0-15.0); Mean Corpuscular HGB Conc 34.5 g/dl (32-36); Mean Corpuscular Hemoglobin 30.3 pg (26-34); Mean Corpuscular Volume 87.8 fl (80-100); Mean Platelet Volume 8.8 fl (7.4-10.4); Platelet Count Result 301 k/mm3 (150-375); Red Cell Distribution Width 12.4 % (11.5-14.5); White Blood Count 8.2 K/mm3 (4.5-10.0)
[2022-04-26 05:04] LABS: Anion Gap 4 mmol/L (8-16); Blood Urea Nitrogen 6 mg/dL (7-17); Calcium 8.2 mg/dL (8.4-10.2); Carbon Dioxide 30 mmol/L (22-30); Chloride 99 mmol/L (98-107); Estimated CRCL calculation 130 ml/min; Estimated Glomerular Filt Rate > 60; Glucose 96 mg/dL (65-110); Potassium 3.8 mmol/L (3.4-5.0); Sodium 133 mmol/L (137-145)
[2022-04-26 07:02] VITALS: BP 111/64; PULSE 81; RESP 16; TEMP 36.7; O2SAT 97
[2022-04-26 08:00] VITALS: BP 126/74; PULSE 94; RESP 16; TEMP 36.4; O2SAT 98
[2022-04-26] MEDS: ENOXAPARIN 40 MG/0.4 ML SYRINGE SUB-Q (08:20)
[2022-04-26] MEDS: FAMOTIDINE 20 MG TABLET PO ×2 (08:21→20:40)
[2022-04-26] MEDS: POTASSIUM CHLORIDE 20 MEQ TABLET.ER PO ×2 (08:21→17:33)
[2022-04-26] MEDS: methocarbamoL 500 MG TABLET PO ×4 (08:21→20:40)
[2022-04-26] MEDS: polyethylene glycoL 3350 17 GM POWD.PACK PO ×2 (08:25→17:32)
[2022-04-26] MEDS: IBUPROFEN IV 800 MG/200 ML 800 MG/200 ML BAG 400 MG IVPB (10:07)
[2022-04-26 16:00] VITALS: BP 117/69; PULSE 77; RESP 12; TEMP 37.4; O2SAT 96
--- NOTE | 2022-04-26 16:05 | PM.PNGS ---
Progress Note: A&P Assessment and Plan (1) Incisional hernia: Qualifiers: Obstruction and gangrene presence: without obstruction or gangrene Qualified Code(s): K43.2 - Incisional hernia without obstruction or gangrene Code(s): K43.2 - Incisional hernia without obstruction or gangrene Status: Acute Assessment and Plan: Continues to improve. Pain seems to be controlled. She is slowly increasing activity. I encouraged ambulating in the halls again today. Still no BM. Continue Miralax BID and will give a fleets enema today. Continue to monitor KIRBY drain output. Incision healing well, repair intact. May be able to discharge in the next 1-2 days if she continues to improve. Plan I have discussed the patient's case and plan of care with Dr. Varma. Subjective Subjective Date/Time Seen: 04/26/22 16:05 Post Op day: 4 (Repair multiple ventral incisional hernias with mesh, total 12 cm of hernia defect; bilateral transversus abdominis myofascial flap advancement) Patient reports: feels better, tolerating a regular diet, voiding w/o difficulty, flatus, no bowel movement and afebrile Interval history: Patient seen and examined. Reports having what feels like spasms across her abdomen that she has been experiencing since surgery. This is intermittent and only occurs after movement or getting up to ambulate. It does take some time to resolve, but current medications are helping with her pain. She did require IV morphine overnight, but this morning has had ibuprofen and Percocet which has helped keep her pain well controlled. She had walked the halls already twice this morning and tolerated that well. She has tolerated some solid food this morning for breakfast without any nausea or vomiting. She is passing flatus, but still no BM since surgery. No other complaints at this time. Review of Systems Review of Systems: All systems reviewed & are unremarkable except as noted in HPI and below Exam Const: General: comfortable, no acute distress and awake Orientation/consciousness: patient oriented x3 GI: Inspection: non-distended, incision (incision healing well, dry and ya intact, no erythema) and other (bilateral KIRBY drains with serosanguineous drainage) GI Palp: Yes Soft to palpation and Yes Tenderness to palpation present (GI) Auscultation: normal bowel sounds Neuro: General: no focal motor deficits and No confusion Extrem: General: no edema Psych: Insight: Good insight present (Psych) Judgement: Good judgement present (Psych) Objective Data Vital Signs Vital Signs: Vital Signs - 24 hr 04/25/22 18:00 04/25/22 20:47 04/25/22 20:00 Temperature 98.5 F 98.7 F Pulse Rate 91 90 90 Respiratory Rate 14 16 16 Blood Pressure 111/67 125/65 Pulse Oximetry 98 96 96 Oxygen Delivery Room Air 04/26/22 07:02 04/26/22 08:00 Temperature 98.0 F 97.6 F Pulse Rate 81 94 Respiratory Rate 16 16 Blood Pressure 111/64 126/74 Pulse Oximetry 97 98 Oxygen Delivery Intake/Output Intake/Output: Intake & Output 04/23/22 04/24/22 04/25/22 04/26/22 23:59 23:59 23:59 23:59 Intake Total 3965 2760 910 1240 Output Total 3025 6080 1110 3630 Balance 475 -3733 -637 -0671 Meds/Results Medications: Active Medications Generic Name Dose Route Start Last Admin Trade Name Freq PRN Reason Stop Dose Admin Acetaminophen 500 mg 04/22/22 17:06 04/24/22 12:31 Acetaminophen 500 Mg Tablet PO 500 mg Q6H PRN Administration Mild Pain (1-3) or Fever Enoxaparin Sodium 40 mg 04/23/22 09:00 04/26/22 08:20 Enoxaparin 40 Mg/0.4 Ml Syringe SUB-Q 40 mg DAILY KENNA Administration Ergocalciferol 50,000 units 04/25/22 09:00 04/25/22 08:12 Ergocalciferol 50,000 Units Capsule PO 50,000 units Souza@0900 KENNA Administration Famotidine 20 mg 04/23/22 21:00 04/26/22 08:21 Famotidine 20 Mg Tablet PO 20 mg Q12HR KENNA Administration Ibuprofen 800 mg in 200 mls @ 400 mls/hr 04/25/22 1
[2022-04-26] MEDS: SENNA/DOCUSATE SODIUM TABLET 2 TAB PO (20:40)
[2022-04-26 23:02] VITALS: BP 126/82; PULSE 90; RESP 21; TEMP 36.1; O2SAT 100
[2022-04-27] MEDS: oxyCODONE/ACETAMINOPHEN (*CRX) 10-325 MG TABLET 1 TAB PO ×2 (04:17→08:41)
[2022-04-27 05:47] LABS: Hematocrit 29.8 % (37.0-47.0); Hemoglobin 9.9 g/dL (12.0-15.0); Mean Corpuscular HGB Conc 33.2 g/dl (32-36); Mean Corpuscular Hemoglobin 29.6 pg (26-34); Mean Platelet Volume 8.6 fl (7.4-10.4); Platelet Count Result 316 k/mm3 (150-375); Red Blood Count 3.35 M/mm3 (4.2-5.4); Red Cell Distribution Width 12.7 % (11.5-14.5); White Blood Count 7.7 K/mm3 (4.5-10.0)
[2022-04-27 06:00] VITALS: BP 116/77; PULSE 85; RESP 18; TEMP 36.7; O2SAT 96
[2022-04-27 06:06] LABS: Anion Gap 2 mmol/L (8-16); Blood Urea Nitrogen 6 mg/dL (7-17); Calcium 8.2 mg/dL (8.4-10.2); Carbon Dioxide 29 mmol/L (22-30); Chloride 103 mmol/L (98-107); Estimated CRCL calculation 113 ml/min; Estimated Glomerular Filt Rate > 60; Glucose 123 mg/dL (65-110); Potassium 3.8 mmol/L (3.4-5.0); Sodium 134 mmol/L (137-145)
[2022-04-27] MEDS: FAMOTIDINE 20 MG TABLET PO (08:35)
[2022-04-27] MEDS: methocarbamoL 500 MG TABLET PO (08:35)
[2022-04-27] MEDS: polyethylene glycoL 3350 17 GM POWD.PACK PO (08:35)
[2022-04-27] MEDS: POTASSIUM CHLORIDE 20 MEQ TABLET.ER PO (08:35)
[2022-04-27] MEDS: ENOXAPARIN 40 MG/0.4 ML SYRINGE SUB-Q (08:35)
[2022-04-27] MEDS: ONDANSETRON INJ 4 MG/2 ML VIAL IV PUSH (08:41)
--- NOTE | 2022-04-27 09:22 | PM.DS ---
DS: Admitting Diagnosis Discharge Date 04/27/22 Admitting Diagnosis Multiple ventral hernias Obesity BMI 41 Smoker DS: Discharge Diagnosis Discharge Diagnosis (1) Incisional hernia: Qualifiers: Obstruction and gangrene presence: without obstruction or gangrene Qualified Code(s): K43.2 - Incisional hernia without obstruction or gangrene Code(s): K43.2 - Incisional hernia without obstruction or gangrene Status: Acute Assessment and Plan: 04/22/22 - Repair multiple ventral incisional hernias with mesh, total 12 cm of hernia defect; bilateral transversus abdominis myofascial flap advancement, 5 cm on the left, 4 cm on the right - by Dr. Varma (2) BMI 40.0-44.9, adult: Code(s): Z68.41 - Body mass index [BMI] 40.0-44.9, adult Status: Acute (3) Smoker: Code(s): F17.200 - Nicotine dependence, unspecified, uncomplicated Status: Acute DS: Summary Hospital Course Reason for hospitalization: This is a 41 yo F smoker who was seen by Dr. Varma as an outpatient regarding ventral hernias. She had a CT abdomen/pelvis on 03/12/22 that showed three supraumbilical ventral hernias containing fat. Treatment options were discussed and decision was made to proceed with surgery. She was brought in for ventral hernia repair, bilateral transverse myofascial flap advancement by Dr. Varma scheduled on 04/22/22. Hospital Course: She was taken to the OR and underwent repair multiple ventral incisional hernias with mesh, total 12 cm of hernia defect; bilateral transversus abdominis myofascial flap advancement, 5 cm on the left, 4 cm on the right, by Dr. Varma. Two extra-large pieces of polypropylene mesh were used to cover the entire abdominal wall. She was admitted post-operative for recovery, pain control, and post-op management. She did require very high doses of Morphine post-op as well as IV Ibuprofen for pain control initially. This allowed her to slowly increase activity and start walking the halls by post-op day 1. Her diet was slowly advanced to a regular diet. She tolerated this well. As her post-operative pain improved, she was able to eventually transition to oral analgesics. Her pain is well-controlled on Percocet and Ibuprofen IV as of this morning. Labs were monitored and she did have a drop in her hemoglobin from 13.4 on pre-op labs to 11.2 on post-op day 1 and down to 9.8 on post-op day 2. This was monitored daily and her hemoglobin remained stable the remainder of her hospitalization. She was hemodynamically stable with no signs of active bleeding. Hgb 9.9 today prior to discharge. After surgery, she also was started on Senokot tablets and Miralax as her bowel function had not returned by post-op day 3. Miralax was increased to BID, which she typically takes Miralax once daily at home prior to surgery. Post-op day 4, she had still not had a BM, so she was given a fleets enema and subsequently had a large formed BM in the afternoon. She also had two KIRBY drains monitored after surgery. They had serosanguineous drainage and output has decreased. Both KIRBY drains will be removed prior to discharge. She is tolerating her diet and tolerating activity today. Her pain is well controlled. She is stable for discharge at this time. Will have her follow-up as scheduled with Dr. Varma on . Time spent discussing smoking cessation with patient: 3 to 10 minutes Status at Discharge Functional status at discharge: independent ambulation Overall status at discharge: patient is progressing back to baseline Time Spent with Patient Time attestation: Total time spent providing and/or coordinating discharge services: Time spent: Greater than 30 minutes Exam Const: General: comfortable, no acute distress and awake Orientation/consciousness: patient oriented x3 GI: Inspection: non-distended, incision (incision healing well, dry and ya intact, no erythema) and other (bilateral KIRBY drains with serosanguineous drainage) GI Pal
== END 2022-04-27 10:30 | disposition home or self-care (01) | DRG 354 ==
LOC: ANHSURGERY 17:46 → ANH2MED 17:46
PROVIDERS: Admitting Provider Surgery; PCP Internal Medicine; Visit Provider Nurse Practitioner Family
PROC: 0WQF0ZZ Repair Abdominal Wall, Open Approach (ICD-10-PCS; principal; 2022-04-22 12:00)
DX: K43.2 Incisional hernia without obstruction or gangrene (principal); Z68.41 Body mass index [BMI] 40.0-44.9, adult; E66.9 Obesity, unspecified; F17.210 Nicotine dependence, cigarettes, uncomplicated
CPT/HCPCS: 36415; 71045; 80048; 85027; A9270; C1781; G0378; J0690; J1100; J1170; J1650; J1741; J1885; J2060; J2250; J2270; J2405; J2704; J2710; J3010; J7120